=== PATIENT | female | born 1975 | race Caucasian/White ===

== ENCOUNTER → 2017-10-04 16:24 | Outpatient (CLI) | payer OTHER, SELFPAY ==
--- NOTE | 2017-10-04 | XR_ITS ---
XR chest 2V COMPARISON: PA and lateral chest 09/01/2017 HISTORY: Cough, suspect bronchitis, recent pneumonia TECHNIQUE: PA and lateral chest FINDINGS: The lung marina are well expanded. There has been almost complete resolution of the ill-defined pneumonic infiltrate in the lingula seen on the previous study and there now is minimal post inflammatory linear scarring in the lingula. There is no new infiltrate. Is no pleural fluid. Cardiac size is normal. IMPRESSION: Essentially resolved lingular pneumonia with minimal residual scarring
== END ==
PROVIDERS: PCP Nurse Practitioner Family; Visit Provider Nurse Practitioner Family
DX: J40 Bronchitis, not specified as acute or chronic (principal)
CPT/HCPCS: 71046

== ENCOUNTER → 2018-02-08 11:07 | Outpatient (CLI) | payer OTHER, SELFPAY ==
--- NOTE | 2018-02-08 11:10 | CT_ITS ---
CT abdomen w con CLINICAL INDICATION: Left upper quadrant pain ITS.REASON: LUQ PAIN ORDERING PHYSICIAN: Josiah Young MD PATIENT AGE: 42 years COMPARISON: None TECHNIQUE: Axial images obtained with sagittal and coronal reformats. All CT scans at the facility use one or more dose reduction, viz: automated exposure control; ma/kV adjustment per patient size (including targeted exams where dose is matched to indication; i.e. head); or iterative reconstruction technique. PROCEDURE: Oral Contrast: Redicat IV Contrast: 75 mL's of Isovue-370. FINDINGS: No acute finding in the lung bases. Bilateral breast implants are present. The liver, spleen, adrenal glands, and pancreas and kidneys have an unremarkable appearance. No renal calculi or hydronephrosis. No intestinal obstruction or free air. The pelvis is not included on the exam. No acute bony findings. IMPRESSION: Negative CT of the abdomen. No acute finding
== END ==
PROVIDERS: Family Provider Nurse Practitioner Family; PCP Nurse Practitioner Family; Visit Provider Family Medicine
DX: R10.12 Left upper quadrant pain (principal)
CPT/HCPCS: 74160; Q9967

== ENCOUNTER → 2020-08-26 15:08 | Outpatient (CLI) | payer BC, SELFPAY ==
--- NOTE | 2020-08-26 15:13 | CA_ITS ---
APPROVED REPORT EXAM: Comprehensive 2D, Doppler, and color-flow Echocardiogram Vegetable I Farmworker: Iona Thorne RVT Ht: 5 ft 7 in Wt: 150lbs BSA: 1.79 BP: 140/90 mmHg Indications: PALPS,HTN TDS-PT HAS BREAST IMPLANTS 2D Dimensions LVOT 2.05 cm (M/F) 1.5-2.5 M-Mode Dimensions RVDd 1.94 cm (0.9-2.6) LA Diam 2.45 cm (1.9-4.0) LVDd 5.37 cm (3.5-5.7) Ao Diam 2.95 cm (2.0-3.7) LVDs 3.78 cm (3.5-5.7) IVSd 0.66 cm (0.6-1.1) PWd 0.37 cm (0.6-1.1) EF (Teich) 56.10% FS 29.60% EDV (Teich) 139.50 mL ESV (Teich) 61.20 mL LV Diastology E Decel Time 150.00 (160-240 msec) E/A Ratio 0.9 MED E' 7.40 (< 7 cm/sec) E'/MED E' Ratio 9.22 (>14) LAT E' 7.30 (<10 cm/sec) E/LAT E' Ratio 9.34 (>14) Mitral Valve MV E Max Lane. 68.00 (40-130 cm/s) MV A Velocity 77.00 (40-130 cm/s) E/A Ratio 0.89 MV Decel. Time 150.00 (160-240 ms) MV PHT 44.00 ms Pulmonary Valve PV Peak Velocity 96.00 (50-150 cm/s) Tricuspid Valve TR P. Velocity 213.00 cm/s Left Ventricle Technically difficult study because of the patient factors and poor acoustic windows. Left atrium is normal size, left ventricle is normal size, left ventricle wall thickness is upper limit of the normal, there is preserved left ventricular systolic function, visually estimated ejection fraction 55% with no regional wall motion abnormality, diastolic parameters are inconclusive. Right Ventricle Right atrium and right ventricle are normal size and contractility. Aortic Valve Aortic valve is grossly normal, there is no aortic stenosis or aortic insufficiency. Mitral Valve Mitral valve is grossly normal, there is trace mitral regurgitation. Tricuspid Valve Tricuspid valve grossly normal, there is trace tricuspid regurgitation. Pulmonic Valve Pulmonic valve is poorly visualized. Great Vessels Aortic root is normal size. Pericardium No significant pericardial effusion noted. Conclusion 1. Normal left ventricular size, preserved left ventricular systolic function, visually estimated ejection fraction 55% with no regional wall motion abnormality, diastolic parameters are inconclusive. 2. Trace mitral and tricuspid regurgitation. 3. No significant pericardial effusion noted. Electronically signed by : Trey Mckee, 08/27/2020 06:17:15
== END ==
PROVIDERS: PCP Nurse Practitioner Family; Visit Provider Family Medicine
DX: R00.2 Palpitations (principal); I10 Essential (primary) hypertension
CPT/HCPCS: 93306

== ENCOUNTER → 2021-04-07 17:24 | Outpatient (CLI) | payer BC, OTHER, SELFPAY | PROVIDERS: PCP Family Medicine; Visit Provider Family Medicine | DX: R00.2 Palpitations (principal) | CPT/HCPCS: 93225; 93226 ==

== ENCOUNTER → 2021-06-26 12:38 | Outpatient (CLI) | payer BC, SELFPAY ==
[2021-06-26 13:12] LABS: Basophils # 0.1 K/mm3 (0-0.2); Basophils % 1.1 % (0.1-2.0); Eosinophils # 0.1 K/mm3 (0.0-0.4); Eosinophils % 1.4 % (0.1-12.0); Hematocrit 45.2 % (37.0-47.0); Hemoglobin 15.3 g/dL (12.2-16.2); Lymphocytes # 3.1 K/mm3 (0.7-4.5); Lymphocytes % 34.5 % (10-50); Mean Corpuscular HGB Conc 33.8 g/dL (31.8-35.4); Mean Corpuscular Hemoglobin 33.9 pg (27.0-31.2); Mean Corpuscular Volume 100.2 fl (81-99); Mean Platelet Volume 8.2 fl (7.4-10.4); Monocytes # 0.4 K/mm3 (0.1-1.0); Monocytes % 4.3 % (1.7-9.3); Neutrophils # 5.2 K/mm3 (1.8-7.8); Neutrophils % 58.7 % (37.0-80.0); Platelet Count 388 K/mm3 (142-424); Red Blood Count 4.51 M/mm3 (4.20-5.40); Red Cell Distribution Width 13.5 % (11.5-17.5); White Blood Count 8.9 K/mm3 (4.8-10.8)
[2021-06-26 14:42] LABS: Alanine Aminotransferase 18 U/L (12-78); Albumin Level 4.1 g/dl (3.5-5.0); Albumin/Globulin Ratio 1.5 (1.1-1.8); Alkaline Phosphatase 44 U/L (38-126); Anion Gap 10.1 mEq/L (5-15); Aspartate Amino Transferase 24 U/L (14-36); Bilirubin,Total 0.2 mg/dl (0.2-1.3); Blood Urea Nitrogen 8 mg/dl (7-17); Calcium 9.3 mg/dl (8.4-10.2); Carbon Dioxide 26 mmol/L (22.0-30.0); Chloride 107 mmol/L (98-107); Estimated Glomerular Filt Rate 77 ml/min (>60); GFR (African American) 93 ML/MIN (>60); Globulin 2.7 g/dL (1.3-3.2); Glucose 87 mg/dl (74-100); Potassium 4.1 mmoL/L (3.5-5.1); Sodium 139 mmol/L (136-145); Total Protein,Serum 6.8 g/dl (6.3-8.2)
[2021-06-26 15:11] LABS: Thyroid Stimulating Hormone 1.25 uIU/mL (0.465-4.68)
[2021-06-26 15:29] LABS: Vitamin B12 565 pg/mL (239-931)
== END ==
PROVIDERS: PCP Family Medicine; Visit Provider Physician Assistant
DX: Z20.822 Contact with and (suspected) exposure to COVID-19 (principal); Z79.899 Other long term (current) drug therapy
CPT/HCPCS: 36415; 80053; 82607; 84443; 85025; C9803; U0003; U0005

== ENCOUNTER 2025-01-12 16:39 | Outpatient (CLI) | payer BC, SELFPAY ==
[2025-01-12 16:58] LABS: Basophils % 0.2 % (0.1-2.0); Eosinophils # 0.1 Kmm3 (0.0-0.4); Eosinophils % 0.6 % (0.1-12.0); Hematocrit 44.1 % (37.0-47.0); Hemoglobin 14.8 g/dL (12.2-16.2); Lymphocytes # 2.6 K/mm3 (0.7-4.5); Lymphocytes % 31.5 % (10-50); Mean Corpuscular HGB Conc 33.6 g/dL (31.8-35.4); Mean Corpuscular Hemoglobin 31.7 pg (27.0-31.2); Mean Corpuscular Volume 94.4 fl (81-99); Mean Platelet Volume 8.5 fl (7.4-10.4); Monocytes # 0.5 K/mm3 (0.1-1.0); Monocytes % 5.9 % (1.7-9.3); Neutrophils % 61.6 % (37.0-80.0); Nucleated Red Blood Cells # 0 10^3/uL; Nucleated Red Blood Cells % 0 %; Platelet Count 381 K/mm3 (142-424); Red Blood Count 4.67 M/mm3 (4.20-5.40); Red Cell Distribution Width 11.8 % (11.5-17.5); Red Cell Distribution Width-SD 40.6 fL; White Blood Count 8.1 K/mm3 (4.8-10.8)
[2025-01-12 17:22] LABS: Anion Gap 12.2 mEq/L (5-15); Aspartate Amino Transferase 32 U/L (14-36); Bilirubin,Total 0.6 mg/dl (0.2-1.3); Blood Urea Nitrogen 11 mg/dl (7-17); Calcium 9.5 mg/dl (8.4-10.2); Carbon Dioxide 29 mmol/L (22.0-30.0); Chloride 102 mmol/L (98-107); Estimated Glomerular Filt Rate 59 ml/min (>60); GFR (African American) 71 ML/MIN (>60); Glucose 90 mg/dl (74-100); Potassium 4.2 mmoL/L (3.5-5.1); Sodium 139 mmol/L (136-145)
[2025-01-12 17:23] LABS: Alanine Aminotransferase 44 U/L (12-78); Albumin Level 4.6 g/dl (3.5-5.0); Albumin/Globulin Ratio 1.8 (1.1-1.8); Alkaline Phosphatase 47 U/L (38-126); Chol/HDL Ratio 4.6 (1-3.5); Cholesterol 198 mg/dl (140-200); Globulin 2.6 g/dL (1.3-3.2); HDL Cholesterol 43 mg/dl (40-60); Total Protein,Serum 7.2 g/dl (6.3-8.2); Triglycerides 126 mg/dl (30-150); VLDL Cholesterol 25 mg/dL (0-40)
[2025-01-12 17:33] LABS: Direct LDL Cholesterol 112.08 mg/dL (100-129)
[2025-01-12 17:42] LABS: Free T4 (Free Thyroxine) 1.41 ng/dl (0.78-2.19)
[2025-01-12 17:57] LABS: Thyroid Stimulating Hormone 0.07 uIU/mL (0.465-4.68)
[2025-01-12 18:16] LABS: Vitamin B12 430 pg/mL (239-931)
== END 2025-01-12 23:59 | disposition home or self-care (01) ==
LOC: LAB 16:41
PROVIDERS: PCP Physician Assistant; Visit Provider Physician Assistant
DX: E03.9 Hypothyroidism, unspecified (principal); I10 Essential (primary) hypertension; G43.919 Migraine, unspecified, intractable, without status migrainosus; Z13.220 Encounter for screening for lipoid disorders
CPT/HCPCS: 36415; 80053; 80061; 82607; 82652; 84439; 84443; 85025

== ENCOUNTER 2025-03-30 17:27 | Outpatient (CLI) | payer BC, SELFPAY ==
--- OUTSIDE RECORDS SUMMARY | 2025-01-11 12:30 | XMS_ITS ---
[facility] Address [address] [id number] Care Team Providers Care Retail Account Representative Name Role Phone Josiah Young Primary Care Provider Flores Jauregui Unavailable [phone] Allergies No Known Allergies Results Component Value Reference Range Notes H-TSH Reviewed date:01/16/2025 03:44:17 PM Interpretation:0.07 Performing Lab: Notes/Report: TSH 0.07 0.465-4.68 uIU/mL H-CBC Reviewed date:01/16/2025 03:44:17 PM Interpretation:mch 31.7 Performing Lab: Notes/Report: WBC 8.1 4.8-10.8 K/mm3 RBC 4.67 4.20-5.40 M/mm3 HGB 14.8 12.2-16.2 g/dL HCT 44.1 37.0-47.0 % MCV 94.4 81-99 fl MCH 31.7 27.0-31.2 pg MCHC 33.6 31.8-35.4 g/dL RDW-SD 40.6 RDW 11.8 11.5-17.5 % PLT 381 142-424 K/mm3 MPV 8.5 7.4-10.4 fl NE% 61.6 37.0-80.0 % LY% 31.5 10-50 % MO% 5.9 1.7-9.3 % EO% 0.6 0.1-12.0 % BA% 0.2 0.1-2.0 % NRBC% 0 NE# 5.0 1.8-7.8 K/mm3 LY# 2.6 0.7-4.5 K/mm3 MO# 0.5 0.1-1.0 K/mm3 EO# 0.1 0.0-0.4 Kmm3 BA# 0.0 0-0.2 K/mm3 NRBC# 0 H-Lipid Panel Reviewed date:01/16/2025 03:44:17 PM Interpretation:chol/hdl 4.6 Performing Lab: Notes/Report: Patient Fasting? N TRIG 126 30-150 mg/dl CHOL 198 140-200 mg/dl DLDL 112.08 100-129 mg/dL VLDL 25 0-40 mg/dL HDL 43 40-60 mg/dl CHLHDL 4.6 1-3.5 H-CMP Reviewed date:01/16/2025 03:44:17 PM Interpretation:Normal Performing Lab: Notes/Report: NA 139 136-145 mmol/L K 4.2 3.5-5.1 mmoL/L CL 102 98-107 mmol/L CO2 29 22.0-30.0 mmol/L GAP 12.2 5-15 mEq/L BUN 11 7-17 mg/dl CREATT 1.00 0.52-1.04 mg/dl GFRAA 71 >60 ML/MIN EGFR 59 >60 ml/min GLU 90 74-100 mg/dl CA 9.5 8.4-10.2 mg/dl BILIT 0.6 0.2-1.3 mg/dl AST 32 14-36 U/L ALT 44 12-78 U/L TP 7.2 6.3-8.2 g/dl ALB 4.6 3.5-5.0 g/dl GLOB 2.6 1.3-3.2 g/dL AGRATIO 1.8 1.1-1.8 ALP 47 38-126 U/L H-T4 free Reviewed date:01/16/2025 03:44:17 PM Interpretation:Normal Performing Lab: Notes/Report: T4F 1.41 0.78-2.19 ng/dl H-Vitamin D 1,25 Reviewed date:01/25/2025 04:31:04 PM Interpretation: Performing Lab: Notes/Report: [id number] 27 . pg/mL Reference Range: Adults: 21 - 65 [id number] <10 . pg/mL This test was developed and its performance characteristics determined by [facility]. It has not been cleared or approved by the Food and Drug Administration. [id number] 26 . pg/mL This test was developed and its performance characteristics determined by [facility]. It has not been cleared or approved by the Food and Drug Administration. Performed at: [facility] [address] [place] [id number] Deicer Inspector Electric: Josiah Remy MD, Phone: [phone] REASON FOR VISIT blood work and check up Encounters Encounter Location Date Provider Diagnosis [facility] [address] [id number] 01/11/2025 Flores Jauregui Hypothyroidism, unspecified hypothyroidism type E03.9 ; Essential hypertension I10 ; Screening for lipid disorders Z13.220 and Intractable migraine without status migrainosus, unspecified migraine type G43.919 Assessments Encounter Date Diagnosis (ICD Code) Assessment Notes Treatment Notes Treatment Clinical Notes Section Notes 01/11/2025 Hypothyroidism, unspecified hypothyroidism type (ICD-10 - E03.9) 01/11/2025 Essential hypertension (ICD-10 - I10) 01/11/2025 Screening for lipid disorders (ICD-10 - Z13.220) 01/11/2025 Intractable migraine without status migrainosus, unspecified migraine type (ICD-10 - G43.919) Plan Of Treatment Pending Test Test Name Order Date H-VITB12 01/11/2025 Progress Notes * Mary POWELLDOB: (49 yo F)Acc No.[id number]:01/11/2025 Progress Notes 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 Blood work and check up. * ROS: D ERMATOLOGY: no R rubi. n o H wayne. G ASTROENTEROLOGY: no N ausea. n o V omiting. U ROLOGY: no D ifficulty urinating. n o B lood in urine. * Medical History: H ypothyroidism, followed [facility], Allergic Rhinitis, Migraine Headache. * Surgical History: B ilateral Lasik 01/11/2014, Breast Augmentation , Uterine Ablation 02/2020. * Hospitalization/Major Diagno stic Procedure: D enies Past Hospitalization. * Family History: F ather: 60 yrs, heart attack, diagnosed with Hypertension. M other: alive 63 yrs, diagnosed with Hypertension. 1 brother(s) . 1 son(s) , 2 daughter(s) . . * Social History: C URRENT TOBACCO USE S moking Status: Patient does NOT smoke. C affeine: yes, frequency:coffee and pop QD. Home smoke detector use: yes. Marital Status: . Past smoking status: no. Alcohol: Yes, Type: , Frequency: ,Years: , Determination:occasionally. Sexually active: yes. * Allergies: N .K.D.A. Objective: * Vitals: Assessment: * Assessment: 1. H ypothyroidism, unspecified hypothyroidism type - E03.9 2 . E ssential hypertension - I10 3 . S creening for lipid disorders - Z13.220 4 . I ntractable migraine without status migrainosus, unspecified migraine type - G43.919 ? Plan: * Treatment: Value Reference Range T SH 0.07 L 0.465-4.68 - uIU/mL * RobbieKeira mehta 01/16/2025 03: 44:07 PM > see phone encounter ?LAB: H-T4 free (Collection Date & Time - 01/12/2025 04:43 PM)?Normal* Value Reference Range T 4F 1.41 0.78-2.19 - ng/dl * RobbieKeira mehta 01/16/2025 03: 44:07 PM > see phone encounter 2.?Essential hypertension?LAB: H-CBC (Collection Date & Time - 01/12/2025 04:43 PM)?mch 31.7* Value Reference Range W BC 8.1 4.8-10.8 - K/mm3 * R BC 4.67 4.20-5.40 - M/mm3 * H GB 14.8 12.2-16.2 - g/dL * H CT 44.1 37.0-47.0 - % * M CV 94.4 81-99 - fl * M CH 31.7 H 27.0-31.2 - pg * M CHC 33.6 31.8-35.4 - g/dL * R DW 11.8 11.5-17.5 - % * P LT 381 142-424 - K/mm3 * M PV 8.5 7.4-10.4 - fl * N E% 61.6 37.0-80.0 - % * L Y% 31.5 10-50 - % * M O% 5.9 1.7-9.3 - % * E O% 0.6 0.1-12.0 - % * B A% 0.2 0.1-2.0 - % * N E# 5.0 1.8-7.8 - K/mm3 * L Y# 2.6 0.7-4.5 - K/mm3 * M O# 0.5 0.1-1.0 - K/mm3 * E O# 0.1 0.0-0.4 - Kmm3 * B A# 0.0 0-0.2 - K/mm3 * R DW-SD 40.6 - fL * N RBC% 0 - % * N RBC# 0 - 10 3/uL * Keira Avalos 01/16/2025 03: 44:07 PM > see phone encounter ?LAB: H-CMP (Collection Date & Time - 01/12/2025 04:43 PM)?Normal* Value Reference Range N A 139 136-145 - mmol/L * K 4.2 3.5-5.1 - mmoL/L * C L 102 98-107 - mmol/L * C O2 29 22.0-30.0 - mmol/L * G AP 12.2 5-15 - mEq/L * B UN 11 7-17 - mg/dl * C REATT 1.00 0.52-1.04 - mg/dl * G FRAA 71 >60 - ML/MIN * E GFR 59 >60 - ml/min * G JASPAL 90 74-100 - mg/dl * C A 9.5 8.4-10.2 - mg/dl * B ILIT 0.6 0.2-1.3 - mg/dl * A ST 32 14-36 - U/L * A LT 44 12-78 - U/L * T P 7.2 6.3-8.2 - g/dl * A LB 4.6 3.5-5.0 - g/dl * G LOB 2.6 1.3-3.2 - g/dL * A GRATIO 1.8 1.1-1.8 - * A LP 47 38-126 - U/L * Keira Avalos 01/16/2025 03: 44:07 PM > see phone encounter 3.?Screening for lipid disorders?LAB: H-Lipid Panel (Collection Date & Time - 01/12/2025 04:43 PM)?chol/hdl 4.6* Value Reference Range T RIG 126 30-150 - mg/dl * C HOL 198 140-200 - mg/dl * D LDL 112.08 100-129 - mg/dL * V LDL 25 0-40 - mg/dL * H DL 43 40-60 - mg/dl * C HLHDL 4.6 H 1-3.5 - * Keira Avalos 01/16/2025 03: 44:07 PM > see phone encounter 4.?Intractable migraine without status migrainosus, unspecified migraine type?LAB: H-VITB12 ?LAB: H-Vitamin D 1,25 (Collection Date & Time - 01/12/2025 04:43 PM)* Value Reference Range l [id number] 27 . - pg/mL * V [id number] <10 . - pg/mL * V [id number] 26 . - pg/mL * Flores Jauregui 01/25/2025 04 :31:00 PM > * Images: Billing Information: * Visit Code: * Procedure Codes: * Electronic signature of BOB Paz on 03/30/2025 at 05:32 PM EDT Sign off status: Pending * Provider: BOB Rendon Date: 0 01/11/2025 Generated for Hadley ng/Fagiftyg/eTransmitting on: 0 03/30/2025 05:32 PM EDT
--- OUTSIDE RECORDS SUMMARY | 2025-01-24 12:30 | XMS_ITS ---
[facility] Organization [facility] [address] [facility] [address] [id number] Care Team Providers Care Division Head Name Role Phone Hector Josiah Primary Care Provider FlacoFlores lorenz Unavailable [phone] Allergies No Known Allergies REASON FOR VISIT lab work f/u and med check Medications Medication SIG (Take, Route, Frequency, Duration) Notes Start Date End Date Status Qulipta 10 MG 1 tablet Orally Once a day; Duration: 90 days 06/08/2024 Active Spironolactone 100 MG 2 tab Orally Once a day; Duration: 90 days Not-Takin g Qulipta 60 MG 1 tablet Orally Once a day; Duration: 90 days 09/28/2024 Active Contrave 8-90 MG take 2 tablet by adela th twice a day Orally Two times a day; Duration: 90 days Active Ondansetron 4 MG 1 tablet on the tong ue and allow to dissolve Orally three times a day as needed 06/08/2024 Not-Taking Liothyronine Sodium 5 MCG 1 tab(s) orall y once a day; Duration: 90 days Active Diclofenac Sodium 75 MG 1 tab(s) Orally two times a day as needed; Duration: 90 days Active Furosemide 20 MG 1 tab(s) orally once a day as needed Active Synthroid 112 MCG 1 tablet in the morning on an empty stomach Orally Once a day; Duration: 30 days 01/24/2025 Active Escitalopram Oxalate 5 MG 1 tab orally o nce a day; Duration: 90 days Active Ubrelvy 100 MG 1 tab(s) orally once daily, prn Not-Taking Tretinoin 0.01 % APPLY TO THE FACE ON CE DAILY IN THE EVENING; Duration: 30 Not-Taking Tretinoin 0.1 % 1 application in the evening to face Externally Once a day 01/24/2025 Active Topiramate 25 MG Take 1 tablet by adela once daily; Duration: 30 Not-Taking Nurtec 75 MG 1 tablet on the tong ue and allow to dissolve Orally every other day 08/03/2024 Not-Takin g Cyclobenzaprine HCl 10 MG 1 tab(s) orall y At Bed Time, prn; Duration: 90 days Active Vital Signs Blood pressure systolic 120 mm Hg 01/25/20 25 Blood pressure diastolic 76 mm Hg 025 Heart Rate 84 /min 01/24/2025 Height 66 in 01/24/2025 Weight 156.4 lbs 01/24/2025 BMI 25.24 kg/m2 01/24/2025 Encounters Encounter Location Date Provider Diagnosis [facility] [address], [place] [id number] 01/24/2025 Flores Jauregui Hypothyroidism, unspecified hypothyroidism type E03.9 ; Routine physical examination Z00.00 ; Essential hypertension I10 ; Screening for lipid disorders Z13.220 ; Intractable migraine without status migrainosus, unspecified migraine type G43.919 ; Anxiety F41.9 ; Adult acne L70.9 and BMI 25.0-25.9,adult Z68.25 Assessments Encounter Date Diagnosis (ICD Code) Assessment Notes Treatment Notes Treatment Clinical Notes Section Notes 01/24/2025 Hypothyroidism, unspecified hypothyroidism type (ICD-10 - E03.9) 01/24/2025 Routine physical examination (ICD-10 - Z00.00) 01/24/2025 Essential hypertension (ICD-10 - I10) 01/24/2025 Screening for lipid disorders (ICD-10 - Z13.220) 01/24/2025 Intractable migraine without status migrainosus, unspecified migraine type (ICD-10 - G43.919) 01/24/2025 Anxiety (ICD-10 - F41.9) 01/24/2025 Adult acne (ICD-10 - L70.9) 01/24/2025 BMI 25.0-25.9,adult (ICD-10 - Z68.25) Plan Of Treatment Medication Medication Name Sig Start Date Stop Date Notes Qulipta 60 MG 1 tablet Orally Once a day; Duration: 90 days 09/28/2024 Diclofenac Sodium 75 MG 1 tab(s) Orally two times a day as needed; Duration: 90 days Synthroid 112 MCG 1 tablet in the morn ing on an empty stomach Orally Once a day; Duration: 30 days 01/24/2025 Escitalopram Oxalate 5 MG 1 tab orally o nce a day; Duration: 90 days Synthroid 125 MCG 1 tablet in the morn ing on an empty stomach Orally Once a day Tretinoin 0.1 % 1 application in the evening to face Externally Once a day 01/24/2025 Next Appt Details Follow Up: 2 Months, Reason: Progress Notes * Mary POWELL MandeepDOB: (49 yo F)Acc No.[id number]:01/24/2025 Progress Notes 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 Lab work f/u and med check. * HPI: H PI: 49 year old female presents with c/o Patient is here today for?Pt is here for a medication check and a lab work f/u. * ROS: D ERMATOLOGY: no R rubi. n o H wayne. G ASTROENTEROLOGY: no N ausea. n o V omiting. U ROLOGY: no D ifficulty urinating. n o B lood in urine. * Medical History: H ypothyroidism, followed by [facility], Allergic Rhinitis, Migraine Headache. * Surgical History: B ilateral Lasik 01/11/2014, Breast Augmentation , Uterine Ablation 02/2020. * Family History: F ather: 60 yrs, [...] ,Years: , Determination:occasionally. Sexually active: yes. * Medications: T aking Furosemide 20 MG Tablet 1 tab(s) orally once a day as needed , Taking Liothyronine Sodium 5 MCG Tablet 1 tab(s) orally once a day , Taking Qulipta 10 MG Tablet 1 tablet Orally Once a day , Taking Contrave 8-90 MG Tablet Extended Release 12 Hour take 2 tablet by mouth twice a day Orally Two times a day , Taking Cyclobenzaprine HCl 10 MG Tablet 1 tab(s) orally At Bed Time, prn , Taking Diclofenac Sodium 75 MG Tablet Delayed Release 1 tab(s) Orally two times a day as needed , Taking Synthroid 125 MCG Tablet 1 tablet in the morning on an empty stomach Orally Once a day , Not-Taking Ondansetron 4 MG Tablet Disintegrating 1 tablet on the tongue and allow to dissolve Orally three times a day as needed , Not-Taking Spironolactone 100 MG Tablet 2 tab Orally Once a day , Not-Taking Nurtec 75 MG Tablet Disintegrating 1 tablet on the tongue and allow to dissolve Orally every other day , Not-Taking Ubrelvy 100 MG Tablet 1 tab(s) orally once daily, prn , Not-Taking Qulipta 60 MG Tablet 1 tablet Orally Once a day , Not-Taking Topiramate 25 MG Tablet Take 1 tablet by mouth once daily , Not-Taking Escitalopram Oxalate 5 MG Tablet 1 tab orally once a day , Not-Taking Tretinoin 0.01 % Gel APPLY TO THE FACE ONCE DAILY IN THE EVENING , Medication List reviewed and reconciled with the patient * Allergies: N .K.D.A. Objective: * Vitals: W t: 156.4, Temp: 97.7, BP: 120/76, HR: 84, Nurse: chaim, Ht: 66, BMI:25.24. * Examination: G eneral Examination: General Appearance: N AD. H EENT: u nremarkable.?Oral cavity: n o lesions, mucosa moist and WNL, no erythema. N moraima: s upple, no lymphadenopathy. C hest: n ormal shape and expansion. H eart: R SR. L ungs: c lear to auscultation. A bdomen: b owel sounds present , soft and nontender , no organomegaly or masses , no guarding or rigidity. N eurologic Exam: I ntact, gait normal. S kin: n ormal, no rash. P eripheral pulses: n ormal (2+) bilaterally. E xtremities: n o leg edema. Assessment: * Assessment: 1. R outine physical examination - Z00.00 2 . H ypothyroidism, unspecified hypothyroidism type - E03.9 3 . E ssential hypertension - I10 4 . S creening for lipid disorders - Z13.220 5 . I ntractable migraine without status migrainosus, unspecified migraine type - G43.919 6 . A nxiety - F41.9? 7. A dult acne - L70.9 8 . B CO 25.0-25.9,adult - Z68.25 Plan: * Treatment: 2. I ntractable migraine without status migrainosus, unspecified migraine type Refill Diclofenac Sodium Tablet Delayed Release, 75 MG, 1 tab(s), Orally, two times a day as needed, 90 days, 180, Refills 1; R efill Qulipta Tablet, 60 MG, 1 tablet, Orally, Once a day, 90 days, 90 Tablet, Refills 3. 3. A nxiety Refill Escitalopram Oxalate Tablet, 5 MG, 1 tab, orally, once a day, 90 days, 90 Tablet, Refills 3.? 4. A dult acne Start Tretinoin Cream, 0.1 %, 1 application in the evening to face, Externally, Once a day, 45 grams, Refills 2. * Procedure Codes: 3 074F SYST BP LT 130 MM HG, 3078F DIAST BP < 80 MM HG * Follow Up: 2 Months * Images: Billing Information: * Visit Code: 00998 Preventive Care Est Pt Age 40-64. Modifiers: [id number] Office Visit, Est Pt., Level 3. * Procedure Codes: 3074F SYST BP LT 130 MM HG. 3078F DIAST BP < 80 MM HG. * Electronic signature of OBB Paz on 03/30/2025 at 05:32 PM EDT Sign off status: Pending * Provider: BOB Rendon Date: 0 01/24/2025 Generated for Hadley nichols/Gaby/Bettinaitting on: 0 03/30/2025 05:32 PM EDT History and Physical Notes * HPI (History of Present Illness) Category Sub-Category Detail Notes Category Not es HPI Patient is here today for Pt is here for a medication check and a lab work f/u Examination Category Sub-Category Detail Notes Category Not es General Examination HEENT: unremarkable Heart: RSR Lungs: clear to auscultatio n Abdomen: bowel sounds present , soft and nontender , no organomegaly or masses , no guarding or rigidity Extremities: no leg edema General Appearance: NAD Skin: normal, no rash Neurologic Exam: Intact, gait normal Neck: supple, no lymphaden opathy Oral cavity: no lesions, mucosa m oist and WNL, no erythema Peripheral pulses: normal (2+) bilatera lly Chest: normal shape and exp ansion
--- OUTSIDE RECORDS SUMMARY | 2025-03-28 06:44 | XMS_ITS ---
Author Organization [facility] [address] [facility] [address] [id number] Care Team Providers Care Acid Changer Name Role Phone Josiah Young Primary Care Provider [phone] Beth Flores Jauregui [phone] REASON FOR VISIT Labs Encounters Encounter Location Date Provider Diagnosis [facility] [address] [place] [id number] 03/28/2025 Flores Juventino Hypothyroidism, unspecified hypothyroidism type E03.9 Assessments Encounter Date Diagnosis (ICD Code) Assessment Notes Treatment Notes Treatment Clinical Notes Section Notes 03/28/2025 Hypothyroidism, unspecified hypothyroidism type (ICD-10 - E03.9) Plan Of Treatment Pending Test Test Name Order Date H-TSH 03/28/2025 H-T4 free 03/28/2025 Progress Notes * Mary POWELLDOB: (49 yo F)Acc No.[id number]:03/28/2025 Patient: Dorothea COY Mary Kaufman :1975 A ge:49 Y S ex:Female Address:[place] [address] Subjective: * Chief Complaints: * L abs * Medical History: * Surgical History: * Hospitalization/Major Diagno stic Procedure: * Medications: Objective: * Vitals: * Physical Examination: Assessment: * Assessment: 1. H ypothyroidism, unspecified hypothyroidism type - E03.9 (Primary) Plan: * Treatment: * Procedure Codes: * true * Date: Generated for Hadley nichols/Gaby/Hayley on: 0 03/30/2025 05:32 PM EDT
--- OUTSIDE RECORDS SUMMARY | 2025-03-30 17:32 | XMS_ITS | Referral Summary ---
Author Organization [employer] ([place], [place], [place], [place]) Address [address] [place] [address] Care Team Providers Care Yarn Hauler Name Role Phone Flores Jauregui Primary Care Provider [phone] Social History Tobacco Use Types Packs/Day Years Used Date Smoking Tobacco: Never Assessed Food Insecurity Answer Date Recorded Food run out past 12 months Not on file 09/20 Food did not last past 12 months Not on file 10/08/2023 Employment Answer Date Recorded Help finding and keeping a job Not on file 0 10/08/2023 Family and Community Support Answer Jusot e Recorded Help with Day to Day Activities Not on file 10/08/2023 Feeling Lonely or Isolated Not on file 10/08 Educational Attainment Answer Date Shaheen rded Speak language other than Finnish at home Not on file 10/08/2023 Want help with school or training Not on file 10/08/2023 Substance Use Answer Date Recorded Used prescription meds for non-medical reasons N ot on file 10/08/2023 Used illegal drugs past 12 months Not on file 10/08/2023 Comments Unknown Sex and Gender Information Value Date Recorded Sex Assigned at Not on file Legal Sex Female 4:38 PM CDT Gender Identity Not on file Sexual Orientation Not on file Plan of Treatment Upcoming Encounters Date Type Department Care Team (Late st Contact Info) Description 04/23/2025 3:15 PM EDT Office Visit [facility] [address] [facility] [address] [place] [address] Carl Freedman MD [address] [place] [address] Procedures Procedure Name Priority Date/Time Associated Diagnosis Comments LIPID PANEL Routine 06/19/2024 8:15 AM EDT Screening, lipid from Last 3 Months or Most Recently Relevant to Health Maintenance Results * (ABNORMAL) Lipid panel (06/19/2024 8:15 AM EDT) Triglycerides 104 0 - 249 mg/dL 06/19/2024 9:09 AM EDT [facility] Cholesterol 174 0 - 199 mg/dL 06/19/2024 9:09 AM EDT [facility] Comment: 200 to 239 mg/dL = Moderate (borderline) >239 mg/dL = High HDL Cholesterol 42 >=40 mg/dL 06/19/2024 9:09 AM EDT [facility] Comment: >=60 mg/dL = Desirable <40 mg/dL = Increased Risk All other components are listed individually or are calculations VLDL Cholesterol 20.8 5 - 40 mg/dL 06/19/2024 9:09 AM EDT [facility] Cholesterol/HDL ratio 4.1(H) 0.0 - 3.2 06/19/2024 9:09 AM EDT [facility] LDl/HDL Ratio 3 0 - 4 06/19/2024 9:09 AM EDT [facility] RISK COMP 4 06/19/2024 9:09 AM EDT [facility] LDL Cholesterol, Calculated 111(H) 0 - 99 mg/dL 06/19/2024 9:09 AM EDT [facility] Blood Venipuncture / Unknown 06/19/2024 8:15 AM EDT 06/19/2024 8:19 AM EDT us Flores ROJAS LAB BLOOD ORDERABLES Final Re sult [facility] [address] [place], [place] [address] [phone] from Last 3 Months or Most Recently Relevant to Health Maintenance Insurance BLUE CROSS/BLUE SHIELD Care Teams Yarn Hauler Relationship Specialty Start Date End Date Flores Jauregui PA [address] [place] [address] PCP - General Physician Chute Man 12/09/22
--- OUTSIDE RECORDS SUMMARY | 2025-03-30 17:32 | XMS_ITS | Clinical Summary ---
Author Organization Healthcare Address [address] [place] [address] Care Team Providers Care Railroad Mechanic Name Role Phone Josiah Young MD Primary Care Provider [phone] Family History Medical History Relation Name Comments Heart disease Father Hyperlipidemia Father Hypertension Father Arthritis Mother Hyperlipidemia Mother Hypertension Mother Thyroid disease Mother Relation Name Status Comments Father Mother Social History Tobacco Use Types Packs/Day Years Used Date Smoking Tobacco: Never Comments Unknown Sex and Gender Information Value Date Recorded Sex Assigned at Not on file Legal Sex Female 8:02 PM EDT Gender Identity Not on file Sexual Orientation Not on file Last Filed Vital Signs Vital Sign Reading Time Taken Comments Blood Pressure - - Pulse - - Temperature - - Respiratory Rate - - Oxygen Saturation - - Inhaled Oxygen Concentration - - Weight 66.7 kg (147 lb) 01/17/2013 8:57 AM EDT Height 170.2 cm (5' 7 ) 01/17/2013 8:57 AM EDT Body Mass Index 23.02 01/17/2013 8:57 AM EDT Plan of Treatment Not on file Care Teams Railroad Mechanic Relationship Specialty Start Date End Date Josiah Young MD [address] [place] [address] PCP - General 01/31/21
--- OUTSIDE RECORDS SUMMARY | 2025-03-30 17:32 | XMS_ITS | Data Portability ---
Author Organization [facility],, Main Office Address [address] [place] [address] Assessment Encounter Date Assessment Date Assessment LastModified by Organization Details LastModified Time 03/12/2020 03/12/2020 Patient presents for pre-op evaluation. History and physical exam indicate: INSERT TEXT HERE. Patient evaluated for pelvic pain. History and exam indicate INSERT TEXT HERE. Patient educated on treatment and goals of therapy. Discussed follow up and orders indicated below. sammie Not available 05/05/2020 21:18:30 Plan of Treatment Reminders Order Date Submit Date Provider Last Modified By Organization Details Last Modified Time Details Appointments None recorded. Lab urinalysis , dipstick 2019 020 sammie Main Office, [address], [place], [address], 0 22:52:56 urinalysis , dipstick 2019 020 sammie Main Office, [address], [place], [address], 0 15:28:30 test, urine 2019 020 sammie Main Office, [address], [place], [address], 0 15:28:30 Referral None recorded. Procedures None recorded. Surgeries None recorded. Imaging None recorded. Medication Orders None recorded. Patient TargetsNo targets recorded. Patient Instructions Encounter Date Encounter Id Patient Instructions Last Modified By Organization Details Last Modified Time 03/12/2020 [id number] heavy menstrual periods: care instructions [email or web address] Not available 05/05/2020 21:21:57 Reason for Referral None Reported. Results Created Date Observation Date Name Description Value Unit Range Abnormal Flag Note LastModifiedBy Organization Detail LastModifiedTime 11/28/1911/28/2019 urina lysis , dipst ick Leukocytes - Not Available Main Of fice [address], [place], [address], 11/28/2019 09:54:51 11/28/1911/28/2019 urina lysis , dipst ick Nitrite negati ve Not Available Main Office [address], [place], [address], 11/28/2019 09:54:51 11/28/1911/28/2019 urina lysis , dipst ick Urobilinogen - Not Available Main Office [address], [place], [address], 11/28/2019 09:54:51 11/28/1911/28/2019 urina lysis , dipst ick Protein - Not Available Main Offic e [address], [place], [address], 11/28/2019 09:54:51 11/28/1911/28/2019 urina lysis , dipst ick pH 6.0 Not Available Main Offic e [address], [place], [address], 11/28/2019 09:54:51 11/28/1911/28/2019 urina lysis , dipst ick Blood - Not Available Main Offic e [address], [place], [address], 11/28/2019 09:54:51 11/28/1911/28/2019 urina lysis , dipst ick Specific [place] 1.010 Not Available Main O ffice [address], [place], [address], 11/28/2019 09:54:51 11/28/19 20 11/28/2019 urina lysis , dipst ick Ketone - Not Available Main Offic e [address], [place], [address], 11/28/2019 09:54:51 11/28/19 20 11/28/2019 urina lysis , dipst ick Bilirubin - Not Available Main Off ice [address], [place], [address], 11/28/2019 09:54:51 11/28/1911/28/2019 urina lysis , dipst ick Glucose - Not Available Main Offic e [address], [place], [address], 11/28/2019 09:54:51 11/28/19 20 11/28/2019 urina lysis , dipst ick Color - Not Available Main Offic e [address], [place], [address], 11/28/2019 09:54:51 11/28/1911/28/2019 pregn neftali test, urine HCG negati ve Not Available Main Office [address], [place], [address], 11/28/2019 09:55:08 03/01/2003/01/2020 urina lysis , dipst ick Leukocytes - Not Available Main Of fice [address], [place], [address], 03/01/2020 09:06:03 03/01/2003/01/2020 urina lysis , dipst ick Nitrite negati ve Not Available Main Office [address], [place], [address], 03/01/2020 09:06:03 03/01/20 20 03/01/2020 urina lysis , dipst ick Urobilinogen - Not Available Main Office [address], [place], [address], 03/01/2020 09:06:03 03/01/20 20 03/01/2020 urina lysis , dipst ick Protein - Not Available Main Offic e [address], [place], [address], 03/01/2020 09:06:03 03/01/20 20 03/01/2020 urina lysis , dipst ick pH 7.5 Not Available Main Offic e [address], [place], [address], 03/01/2020 09:06:03 03/01/20 20 03/01/2020 urina lysis , dipst ick Blood - Not Available Main Offic e [address], [place], [address], 03/01/2020 09:06:03 03/01/20 20 03/01/2020 urina lysis , dipst ick Specific [place] 1.005 Not Available Main O ffice [address], [place], [address], 03/01/2020 09:06:03 03/01/20 20 03/01/2020 urina lysis , dipst ick Ketone - Not Available Main Offic e [address], [place], [address], 03/01/2020 09:06:03 03/01/20 20 03/01/2020 urina lysis , dipst ick Bilirubin - Not Available Main Off ice [address], [place], [address], 03/01/2020 09:06:03 03/01/20 20 03/01/2020 urina lysis , dipst ick Glucose - Not Available Main Offic e [address], [place], [address], 03/01/2020 09:06:03 03/01/20 20 03/01/2020 urina lysis , dipst ick Appearance - Not Available Main Of fice [address], [place], [address], 03/01/2020 09:06:03 03/01/20 20 03/01/2020 urina lysis , dipst ick Color - Not Available Main Offic e [address], [place], [address], 03/01/2020 09:06:03 Result Notes None recorded. Problems Name Problem SNOMED Code Status Onset Date Resolution Date Notes Provider Name and Address Organization Details Recorded Time Migraine [id number] Active 019 Marya Puente [facility], 08/11/2019 10:46:31 Problem Notes None recorded. Procedures Surgical History Date Name Laterality Status Provider Name and Address Organization Details Recorded Time 03/13/20 20 Hysteroscopy completed [facility], 03/26/2020 15:54:06 03/13/20 20 Endometrial Ablation completed [facility], 03/26/2020 15:54:17 08/11/20 19 Date of Last Pap Smear completed Marya Puente [facility], 08/11/2019 10:46:51 09/20/19 14 Most Recent Mammogram completed [facility], 12/22/2017 14:05:43 09/20/19 14 Date of Last Mammogram completed [facility], 12/22/2017 14:06:52 delivery completed [facility], 12/22/2017 12:14:41 Breast Surgery completed [facility], 12/22/2017 14:14:59 Imaging Results None recorded. Procedure Notes None recorded. Medical Equipment None Reported. Allergies No known drug allergies Medications Name Sig Start Date Stop Date Status Note LastModified by Organization Details LastModified Time amoxicillin 500 mg capsule 12/22 completed Not Available Not Available Not Available furosemide 40 mg tablet 08/11 completed Not Available Not Available Not Available promethazin e-DM 6.25 mg-15 mg/5 mL oral syrup 03/12 completed Not Available Not Available Not Available venlafaxine ER 37.5 mg capsule,ext ended release 24 hr 12/07 completed Not Available Not Available Not Available potassium chloride ER 10 mEq capsule,ext ended release active Not Available Not Available Not Available venlafaxine ER 75 mg capsule,ext ended release 24 hr 08/11 completed Not Available Not Available Not Available fexofenadin e 60 mg tablet 09/17 completed Not Available Not Available Not Available azithromyci n 250 mg tablet 12/22 completed Not Available Not Available Not Available Lidocaine Viscous 2 % mucosal solution 12/22 completed Not Available Not Available Not Available fluconazole 150 mg tablet 08/11 completed Not Available Not Available Not Available benzonatate 200 mg capsule 12/22 completed Not Available Not Available Not Available valacyclovi r 1 gram tablet Take 1 tablet every day by oral route as needed for 5 days. active Not Available Not Available No t Available hydrocodone 5 mg-acetamin ophen 325 mg tablet 03/26 completed Not Available Not Available Not Available tretinoin 0.025 % topical cream Every night at bedtime 09/17 completed Not Available Not Available Not Available Synthroid 150 mcg tablet 08/11 completed Not Available Not Available Not Available ondansetron HCl 8 mg tablet 12/22 completed Not Available Not Available Not Available minocycline 100 mg capsule 12/22 completed Not Available Not Available Not Available meloxicam 15 mg tablet 12/22 completed Not Available Not Available Not Available ondansetron HCl 4 mg tablet active Not Available Not Available Not Available Synthroid 125 mcg tablet active Not Available Not Available Not Available spironolact one 100 mg tablet active Not Available Not Available Not Available sumatriptan 50 mg tablet 12/07 completed Not Available Not Available Not Available topiramate 25 mg tablet active Not Available Not Available Not Available fexofenadin e 180 mg tablet 09/17 completed Not Available Not Available Not Available liothyronin e 5 mcg tablet active Not Available Not Available Not Available tramadol 50 mg tablet 09/17 completed Not Available Not Available Not Available amitriptyli ne 50 mg tablet 08/11 completed Not Available Not Available Not Available triamcinolo ne acetonide 0.1 % topical cream 08/11 completed Not Available Not Available Not Available Cortrosyn 0.25 mg solution for injection INJECT 0.25 MG BY INTRAMUSC ULAR ROUTE ONCE 08/26 completed Not Available Not Available Not Available Promethazin e VC-Codeine 6.25 mg-5 mg-10 mg/5 mL oral syrup 12/22 completed Not Available Not Available Not Available amitriptyli ne 25 mg tablet 12/22 completed Not Available Not Available Not Available triamcinolo ne acetonide 0.025 % topical cream 12/22 completed Not Available Not Available Not Available meclizine 25 mg tablet 03/12 completed Not Available Not Available Not Available dexamethaso ne 2 mg tablet 12/22 completed Not Available Not Available Not Available hydrocodone 7.5 mg-acetamin ophen 325 mg tablet 12/22 completed Not Available Not Available Not Available cephalexin 500 mg capsule 12/22 completed Not Available Not Available Not Available oseltamivir 75 mg capsule 08/11 completed Not Available Not Available Not Available Neurontin 100 mg capsule Take 1 cap qhs 08/11 completed Not Available Not Available Not Available dexamethaso ne 4 mg tablet 03/12 completed Not Available Not Available Not Available Effexor 37.5 mg tablet twice a day by oral route. 12/07 completed Not Available Not Available Not Available hydrochloro thiazide 12.5 mg capsule 12/22 completed Not Available Not Available Not Available minocycline 75 mg capsule Two times a day 09/17 completed Not Available Not Available Not Available Pred Forte 1 % eye drops,suspe nsion 09/17 completed Not Available Not Available Not Available montelukast 10 mg tablet 09/17 completed Not Available Not Available Not Available mupirocin 2 % topical ointment 09/17 completed Not Available Not Available Not Available furosemide 20 mg tablet active Not Available Not Available Not Available azelastine 137 mcg (0.1 %) nasal spray 09/17 completed Not Available Not Available Not Available ibuprofen 600 mg tablet active Not Available Not Available Not Available cefuroxime axetil 500 mg tablet 12/22 completed Not Available Not Available Not Available levofloxaci n 750 mg tablet 09/17 completed Not Available Not Available Not Available methylpredn isolone 4 mg tablets in a dose pack 12/22 completed Not Available Not Available Not Available cefdinir 300 mg capsule 03/12 completed Not Available Not Available Not Available fluticasone propionate 50 mcg/actuati on nasal spray,suspe nsion 09/17 completed Not Available Not Available Not Available spironolact one 50 mg tablet 09/17 completed Not Available Not Available Not Available amoxicillin 875 mg-potassiu m clavulanate 125 mg tablet 08/11 completed Not Available Not Available Not Available amoxicillin 500 mg-potassiu m clavulanate 125 mg tablet 08/11 completed Not Available Not Available Not Available Synthroid 137 mcg tablet 03/12 completed Not Available Not Available Not Available eletriptan 40 mg tablet active Not Available Not Available Not Available cyclobenzap rine 5 mg tablet active Not Available Not Available Not Available duloxetine 60 mg capsule,del ayed release active Not Available Not Available Not Available Relpax 06/11 completed Not Available Not Available Not Available ProAir HFA 90 mcg/actuati on aerosol inhaler 08/11 completed Not Available Not Available Not Available Flector 1.3 % transdermal 12 hour patch 08/11 completed Not Available Not Available Not Available desvenlafax ine succinate ER 50 mg tablet,exte nded release 24 hr Take 1 tablet(s) every day by oral route. 03/12 completed Not Available Not Available Not Available desvenlafax ine succinate ER 100 mg tablet,exte nded release 24 hr active Not Available Not Available Not Available venlafaxine ER 75 mg tablet,exte nded release 24 hr 12/22 completed Not Available Not Available Not Available L norgest/E estradiol-E estrad 0.1 mg-20 mcg (84)/10 mcg (7) tabs,3mos TAKE 1 TABLET BY MOUTH EVERY DAY active Not Available Not Available No t Available gatifloxaci n 0.5 % eye drops 09/17 completed Not Available Not Available Not Available Silenor 3 mg tablet 12/22 completed Not Available Not Available Not Available Lotemax 0.5 % eye gel drops 09/17 completed Not Available Not Available Not Available Prolensa 0.07 % eye drops 09/17 completed Not Available Not Available Not Available desvenlafax ine ER 50 mg tablet,exte nded release 24 hour active Not Available Not Available Not Available Ajovy Syringe 225 mg/1.5 mL subcutaneou s active Not Available Not Available Not Available Vitals Date Recorded Body height Body mass index (BMI) Body weight Heart rate Body temperature Systolic And Diastolic Provider Name and Address Organization Details Last Updated DateTime 0 170.18 cm 23.3 kg/m2 11411.2 6 g 92 /min 96.7 [degF] 139/94 mm[Hg] [facility], 0 09:52:37 Date Recorded Body height Body mass index (BMI) Body weight Heart rate Body temperature Systolic And Diastolic Provider Name and Address Organization Details Last Updated DateTime 0 170.18 cm 23.5 kg/m2 99889.8 6 g 80 /min 98.2 [degF] 124/91 mm[Hg] [facility], 0 09:04:20 Date Recorded Body height Body mass index (BMI) Body weight Heart rate Body temperature Systolic And Diastolic Provider Name and Address Organization Details Last Updated DateTime 0 170.18 cm 23.5 kg/m2 96268.8 6 g 88 /min 98.4 [degF] 133/89 mm[Hg] [facility], 0 14:13:13 Date Recorded Body height Body mass index (BMI) Body weight Heart rate Body temperature Systolic And Diastolic Provider Name and Address Organization Details Last Updated DateTime 0 170.18 cm 23.5 kg/m2 60078.8 6 g 91 /min 98 [degF] 116/90 mm[Hg] [facility], 0 15:52:30 Social History Question Answer Notes LastModified by Organizat ion Details LastModified Time Tobacco Smoking Status Never Smoker Not Available [employer] 07/16/2020 03:20:23 Able To Swim? Yes Information not available 12/22/2017 Accident Related Injury No Information not available 12/22/2017 Do You Have An Advance Directive? No [id number] Information not available 07/16/2020 How Many Years Have You Consumed Alcohol? 21 [id number] Information not available 07/16/2020 Animal Exposure? Yes Informat ion not available 12/22/2017 Are You Currently Sexually Active With Anyone Who Has Traveled (within The Last 12 Weeks) To A Zika-affected Area? No [id number] Information not available 07/16/2020 Do You Wear A Helmet When Biking? No [id number] Information not available 07/16/2020 Are You Blind Or Do You Have Difficulty Seeing? No [id number] Information not available 07/16/2020 What Is Your Level Of Caffeine Consumption? Moderate [id number] Information not available 07/16/2020 How Much Tobacco Do You Chew? None [id number] Information not available 07/16/2020 Concerns About Meeting Basic Needs (food, Housing, Heat, Etc)? No Information not available 12/22/2017 Are You Deaf Or Do You Have Serious Difficulty Hearing? No [id number] Information not available 07/16/2020 What Type Of Diet Are You Following? REGULAR [id number] Information not available 07/16/2020 Which Illicit Or Recreational Drugs Have You Used? None [id number] Information not available 07/16/2020 Education 4 Year College Information not available 12/22/2017 What Is The Highest Grade Or Level Of School You Have Completed Or The Highest Degree You Have Received? [id number] Information not available 07/16/2020 How Many Days Of Moderate To Strenuous Exercise, Like A Brisk Walk, Did You Do In The Last 7 Days? 1 [id number] Information not available 07/16/2020 On Those Days That You Engage In Moderate To Strenuous Exercise, How Many Minutes, On Average, Do You Exercise? 1 [id number] Information not available 07/16/2020 Family History Of Heart Disease? Yes Information not available 12/22/2017 Have There Been Any Changes To Your Family Or Social Situation? No [id number] Information no t available 07/16/2020 How Hard Is It For You To Pay For The Very Basics Like Food, Housing, Medical Care, And Heating? [id number] Information not available 12/22/2017 Are There Any Guns Present In Your Home? Yes [id number] Information not available 07/16/2020 Hard Of Hearing Or Deaf In One Or Both Ears? No Information not available 12/22/2017 Legally Blind In One Or Both Eyes? No Information no t available 12/22/2017 Live Alone Or With Others? With Others Information not available 12/22/2017 Do You Have A Medical Power Of [employer] Crewmember? No [id number] Information not available 07/16/2020 What Was The Date Of Your Most Recent Tobacco Screening? 01/12/2018 [id number] Information not available 07/16/2020 How Many Children Do You Have? 3 [id number] Information not available 07/16/2020 Performs Monthly Self-breast Exam? Yes Information no t available 12/22/2017 Do You Have Any Pets? Yes [id number] Information not available 07/16/2020 Difficulty Reading? No Information not available 12/22/2017 Seat Belts Used Routinely Yes Information not available 12/22/2017 Are You Sexually Active? Yes [id number] Information not available 07/16/2020 Smoke Alarm In Home Yes Information not available 12/22/2017 Do You Have Smoke And Carbon Monoxide Detectors In Your Home? Yes [id number] Information not available 07/16/2020 Are You Passively Exposed To Smoke? No Information no t available 12/22/2017 Are There Any Smokers In Your House? No Information not available 12/22/2017 How Much Tobacco Do You Smoke? No [id number] Information not available 07/16/2020 General Stress Level Medium Information not available 12/22/2017 Sun Exposure Minimal Information not available 12/22/2017 Do You Use Sunscreen Routinely? No [id number] Information not available 07/16/2020 TB Risk Low Information no t available 12/22/2017 Has Tobacco Cessation Counseling Been Provided? No [id number] Information not available 07/16/2020 Difficulty Watching TV? No Information not available 12/22/2017 Do You Have Difficulty Walking Or Climbing Stairs? No [id number] Information not available 07/16/2020 Sex: Unknown Functional Status Question Answer Note LastModified by Organizat ion Details LastModified Time What is your level of alcohol consumption? Occasional [id number] Information not available 07/16/2020 Are you currently employed? Yes [id number] Information not available 07/16/2020 Do you have transportation difficulties? No [id number] Information not available 07/16/2020 Are you able to walk? YESWOREST [id number] Information not available 07/16/2020 Do you have difficulty doing errands alone? No [id number] Information not available 07/16/2020 Are you able to care for yourself? 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 No [id number] Information not available 07/16/2020 What is your exercise level? Occasional [id number] Information not available 07/16/2020 Mental Status Question Answer Note LastModified by Organizat ion Details LastModified Time Do you feel stressed (tense, restless, nervous, or anxious, or unable to sleep at night)? 1 [id number] Information not available 07/16/2020 Do you have difficulty concentrating, remembering or making decisions? Yes remembering [id number] Information not available 07/16/2020 Family History Relationship Description Onset Age of this Age Resolved Age Notes LastModified by Organization Details LastModified Time Mother Hypothyroidi sm [email or web address] Not available 12/22 12:12:24 Mother Hypertensive disorder [email or web address] Not available 12/22 12:12:46 Mother Hypercholest erolemia [email or web address] Not available 12/22 14:08:49 Mother Arthritis [email or web address] Not availa ble 12/22/2017 14:10:37 Paternal Grandfather Hypertensive disorder [email or web address] Not available 12/22 12:12:46 Paternal Grandfather Heart disease [email or web address] Not available 12/22 12:13:17 Father Heart disease [email or web address] Not available 12/22 12:13:17 Father Hypertensive disorder [email or web address] Not available 12/22 14:09:26 Paternal Uncle Heart disease [email or web address] Not available 12/22 14:09:11 Paternal Uncle Hypertensive disorder [email or web address] Not available 12/22 14:10:08 Brother Hypertensive disorder [email or web address] Not available 12/22 14:09:38 Maternal Grandfather Hypertensive disorder [email or web address] Not available 12/22 14:09:50 Maternal Grandmother Hypertensive disorder [email or web address] Not available 12/22 14:09:58 Maternal Grandmother Arthritis [place] Not available 0 12/22/2017 14:10:37 Medical History Condition Response Coronary Artery Disease N Gout N Other Y Blood Diseases N Kidney Stones N Enlarged Prostate N Hyperthyroidism Y Blood Transfusion N COPD N Depression N Dermatologic Disorders N Gestational Diabetes N Anxiety Disorder N Muscle, Joint, or Bone Problems N Autoimmune disease N Obesity N Vision or Eye Problems N Arthritis N Polyps N Infertility N Mental Disorder N Cancer N Varicosities N Stroke N Neurologic/Epilepsy N Headaches Y Fibromyalgia N Kidney Disease N Heart Problems N Ear or Hearing Problems N Hospitalizations N Acne N Skin Problems N Eating Disorder N MRSA exposure N Heartburn N Constipation N Art (IVF or FET) N Bladder Problems N Bleeding Disorder N Tuberculosis N AIDS/HIV N G.E.R.D N Asthma N Trauma/Violence N Hepatitis N Pulmonary Embolism N Chronic Ear Infections N Chicken Pox N Autism Spectrum Disorder (ASD) N Thrombophilias N Allergies (Food, seasonal, environmental ) N Colon Cancer N Drug/Latex Allergies/Reactions N Breast Cancer N Hypothyroidism N Lung Disease N Developmental or Behavioral Disorders N Defects or Inherited Disease N Breast Problem N Difficulty Swallowing N Hematologic disorders N Anesthesia Complications N History of STI N Deep Vein Thrombosis N Polycystic ovary syndrome N Meniere's disease N History of abnormal pap N Endometriosis N High Cholesterol N Liver Disease N Allergies/Hayfever N Kidney Problems N Thyroid Problems N GI Problems N ADD/ADHD N Anemia N Mental Illness N Psychiatric Illness N Diabetes N Ovarian Cancer N Pulmonary (TB, Asthma) N Seizures/Epilepsy N Congestive Heart Failure (CHF) N Hyperlipidemia N Eczema N Abuse/Domestic Violence N Diverticulitis N Depression/ depression N Heart Disease N Hypertension N Pre-Eclampsia N Osteoporosis N Gynecological History Statement/Question Response Abnormal Pap N Date of Last Mammogram 09/20/2013 Date of LMP 08/07/2019 On BCP's at Conception? N STIs/STDs Y HPV Vaccine N Duration of Flow (days) 5 Age at Menarche 12 Current Control Method BCPs Most Recent Mammogram 09/20/2013 Age at First Child 17 Date of Last Colonoscopy Frequency of Cycle (Q days) Sexually Active? Y Menses Monthly Y Date of Last Pap Smear 08/11/2019 Sexual Problems? N LMP Approximate Obstetrics History GPAL:G 3 P 3 0 0 3 Type Value Full Term 3 Living 3 Total 3 Immunizations Vaccine Type Date Status Note Provider Nam e and Address Organization Details Recorded Time Influenza, split virus, quadrivalent, preservative 7 completed Estefania Sam [facility] FERTILITY AND GYNECOLOGY, 01/12/2018 15:39:47 Past Encounters Encounter ID Performer Location Encounter Start Date Encounter Closed Date Diagnosis/Indication Diagnosis SNOMED-CT Code Diagnosis ICD10 Code Diagnosis Note [id number] BOB Pereyra Main Office [address] [place] [address] 12/22/2017 13:26:15 12/22/2017 15:10:30 Depressive disorder 96711451 F33.0 Gynecologi c examination 31557587 Z01.411 pap Irregular periods 704438 07 N92.6 labs, u/s. interested in novasure Flushing 305104460 R23.2 switch to pristiq Screening for malignant neoplasm of colon 417638464 Z12.11 [id number] Liam Estrada DO Main Office [address] [place] [address] 01/12/2018 14:58:05 01/12/2018 16:27:37 Irregular periods 61620604 N92.6 Cyst of ovary 46317703 N 83.209 [id number] Liam Estrada DO Main Office [address] [place] [address] 08/11/2019 09:48:16 08/11/2019 11:45:03 Renewal of prescription 562672307 Z76.0 Gynecologi c examination 81325617 Z01.411 pap Pain in pelvis 99626327 R10.2 left-sided Reduced libido 7077543 R 68.82 labs Break-thro ugh bleeding 69730068 N92.1 u/s Menorrhagia 128714998 N9 2.0 Hypothyroidism 01739736 E03.8 [id number] Liam Estrada DO Main Office [address] [place] [address] 08/29/2019 14:58:17 08/29/2019 16:02:16 Menstrual migraine 41617144 G43.829 Cyst of right ovary 1223 114560 3303521 N83.291 Menorrhagia 187985515 N9 2.0 Secondary dysmenorrhea 53819792 N94.5 Pain in pelvis 16993531 R10.2 [id number] Liam Estrada DO Main Office [address] [place] [address] 11/28/2019 09:45:02 11/28/2019 10:54:09 Pain in pelvis 80121622 R10.2 Abnormal u terine bleeding 3295548368 9100 N92.0 Cyst of left ovary 53198 79512 2593256 N83.292 [id number] Liam Estrada DO Main Office [address] [place] [address] 03/01/2020 08:57:46 03/01/2020 11:52:01 Pain in pelvis 17987684 R10.2 Abnormal u terine bleeding 4768847864 9100 N92.0 Cyst of right ovary 1223 272835 3305683 N83.291 [id number] Liam Estrada DO Main Office [address] [place] [address] 03/12/2020 13:42:44 03/12/2020 15:05:42 Menorrhagia 804058117 N92.0 Pain in pelvis 02761049 R10.2 left-sided Secondary dysmenorrhea 58447918 N94.5 [id number] Liam Estrada DO Main Office [address] [place] [address] 03/13/2020 14:19:54 03/13/2020 14:33:44 [id number] Liam Estrada DO Main Office [address] [place] [address] 03/26/2020 15:45:24 03/27/2020 10:04:23 Abnormal uterine bleeding 0719903677 9100 N92.0 Secondary dysmenorrhea 37722038 N94.5 Health Concerns Section Related Observation LastModified by Organization Detai ls LastModified Time None Recorded Concern Status LastModified by Organization Details LastModified Time None Recorded Advance Directives Directive N: Payers Insurance Date Sequence Insurance Name Policy Number Policy Salvador Covered Member ID Salvador Member ID Guarantor Name 03/23/2020 1 [place] [facility] [id number] Mary Powell [id number] Mary Powell 08/11/2019 1 [facility] [id number] Mary Powell [id number] Mary Powell Notes Date Note Type Note Provider Name and Address Organization Details Recorded Time 03/01/2020 text/html Abnormal BleedingReported bypatient.Onset/Timing :past 6+ cycles Duration:10-15 days/month Quality:passing clots;irregular;heavy Severity:interferes with daily activities Context:occurs after intercourse Associated Symptoms:dysmenorrhea; pelvic pain Liam Estrada DO [address], [place], [address], [facility] FERTILITY AND GYNECOLOGY, 05/21/2020 22:53:00 03/12/2020 text/html Abnormal BleedingReported bypatient.Onset/Timing :past 6+ cycles; every cycle Duration:10-15 days/month Quality:passing clots;heavy Associated Symptoms:dysmenorrhea; pelvic painPre-OpReported bypatient.Surgery to be Performed:Patient presents for pre-op evaluation. Procedure: hysteroscopy, D&C, endometrial biopsy, novasure endometrial ablation Context/Condition Being Addressed:pelvic pain, aub, ovarian cyst Location:[facility] Severity:mild Risk Factorsno cognitive impairment; no functional impairment; no malnutrition; no frailty; able to climb a flight of stairs (exercise capacity>4 METS); no obstructive sleep apnea; non-smoker; no alcohol misuse; no illicit drug use; no chronic cardiopulmonary condition; not obese Anesthesia hx:no hx of anesthesia complications; no allergy to anesthetic agents Functional Ability:able to walk up stairs; able to perform heavy work around the house Post-Op Support:no need for assistance Patient presents for evaluation. of excessive bleeding Procedure: hysteroscopy, D&C, endometrial biopsy, novasure endometrial ablation Liam Estrada DO [address], [place], [address], [facility] FERTILITY AND GYNECOLOGY, 05/05/2020 21:22:01 03/26/2020 text/html Post-OpReported bypatient.Associated Symptoms:incision healing well; no fatigue; normal appetite; normal bowel function; no constipation; no nausea; no emesis; pain improving; no pain; no fever; no bleeding; no lower extremity edema/pain; no dysuria/urinary symptoms Liam Estrada DO [address], [place], [address] FERTILITY AND GYNECOLOGY, 06/22/2020 17:10:59 OBGyn Episode Ob Episode Information Episode Created Date Number of Fetuses Patient Bloodtype Patient rh Status Prepregnancy Weight lbs Domestic Partner Domestic Partner Phone Father Name Vp Account Director Status 12/23/19 18 1 CLOSED Fetus Data First Name Last Name Admitted to NICU Weight (g) Sex Living Outcome Pediatric Complications Fetus ID Race Codes Race Delivery Type 3685.43 5 F Full Term 1621 vaginal Eben Calculation Initial Eben Date Initial Exam Date Initial Exam Provider Initial Ultrasound Date Last Menstrual Period Date Ultra Sound Weeks Gestation 0 Eighteen To Twenty Week Eben Update Ultra Sound Date Fundal Height At Umbil Quickening Date Ultra Sound Latest Weeks Gestation Final Eben Confirmed By Final Eben Confirmed Date Final Eben Date Ultra Sound Latest Days Gestation 0 0 Menstrual History Last Menstrual Date Menses Monthly On Bcp Conception Prior Menses Frequency Hcg Plus Date Menarche Onset Age Delivery Information Delivery Date Delivery Type Labor Anesthesia Weeks Gestation Incision Type Labor Labor Length Hrs Delivered By Post Complications Tubal Sterilization Discharge Date Comments 4 Discharge Information Feeding Method Contraceptive Method Maternal HG B and HCT Levels Ob Episode Information Episode Created Date Number of Fetuses Patient Bloodtype Patient rh Status Prepregnancy Weight lbs Domestic Partner Domestic Partner Phone Father Name Vp Account Director Status 12/23/19 18 1 CLOSED Fetus Data First Name Last Name Admitted to NICU Weight (g) Sex Living Outcome Pediatric Complications Fetus ID Race Codes Race Delivery Type 3572.03 7 F Full Term 1620 vaginal Eben Calculation Initial Eben Date Initial Exam Date Initial Exam Provider Initial Ultrasound Date Last Menstrual Period Date Ultra Sound Weeks Gestation 0 Eighteen To Twenty Week Eben Update Ultra Sound Date Fundal Height At Umbil Quickening Date Ultra Sound Latest Weeks Gestation Final Eben Confirmed By Final Eben Confirmed Date Final Eben Date Ultra Sound Latest Days Gestation 0 0 Menstrual History Last Menstrual Date Menses Monthly On Bcp Conception Prior Menses Frequency Hcg Plus Date Menarche Onset Age Delivery Information Delivery Date Delivery Type Labor Anesthesia Weeks Gestation Incision Type Labor Labor Length Hrs Delivered By Post Complications Tubal Sterilization Discharge Date Comments 2 Discharge Information Feeding Method Contraceptive Method Maternal HG B and HCT Levels Ob Episode Information Episode Created Date Number of Fetuses Patient Bloodtype Patient rh Status Prepregnancy Weight lbs Domestic Partner Domestic Partner Phone Father Name Vp Account Director Status 12/23/19 18 1 CLOSED Fetus Data First Name Last Name Admitted to NICU Weight (g) Sex Living Outcome Pediatric Complications Fetus ID Race Codes Race Delivery Type 3089.86 8704 M Full Term 1622 Eben Calculation Initial Eben Date Initial Exam Date Initial Exam Provider Initial Ultrasound Date Last Menstrual Period Date Ultra Sound Weeks Gestation 0 Eighteen To Twenty Week Eben Update Ultra Sound Date Fundal Height At Umbil Quickening Date Ultra Sound Latest Weeks Gestation Final Eben Confirmed By Final Eben Confirmed Date Final Eben Date Ultra Sound Latest Days Gestation 0 0 Menstrual History Last Menstrual Date Menses Monthly On Bcp Conception Prior Menses Frequency Hcg Plus Date Menarche Onset Age Delivery Information Delivery Date Delivery Type Labor Anesthesia Weeks Gestation Incision Type Labor Labor Length Hrs Delivered By Post Complications Tubal Sterilization Discharge Date Comments 1 Discharge Information Feeding Method Contraceptive Method Maternal HG B and HCT Levels
--- OUTSIDE RECORDS SUMMARY | 2025-03-30 17:32 | XMS_ITS | Clinical Summary ---
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 [place] [address] Health Maintenance Due Date Last Done Comments CT Colonography 1975 Colonoscopy 1975 Colorectal Cancer Screening 1975 FOBT/FIT 1975 Fit-DNA (Cologuard) 1975 Sigmoidoscopy 1975 Depression Screening (12+) 1987 Tobacco Cessation Counseling and Screening (12+) 1987 HIV Screening 1990 Hepatitis C Screening 1993 DTAP/TDAP/TD VACCINES (1 - Tdap) 1994 Pap Smear 1996 Breast Cancer Screening 2015 COVID-19 VACCINE (3 - 2023-2 5 season) 2024 12/25/2020, 11/27/2020 Influenza Vaccine (#1) 2025 08/07/2022 Lipid Panel 06/19/2027 06/19/2024, 12/09/2022 Pneumococcal Vaccine: 0-49 Years Aged Out No longer eligible b ased on patient's age to complete this topic Procedures Procedure Name Priority Date/Time Associated Diagnosis Comments LIPID PANEL Routine 06/19/2024 8:15 AM EDT Screening, lipid from Last 3 Months or Most Recently Relevant to Health Maintenance Results * (ABNORMAL) Lipid panel (06/19/2024 8:15 AM EDT) Triglycerides 104 0 - 249 mg/dL 06/19/2024 9:09 AM EDT [facility] Cholesterol 174 0 - 199 mg/dL 06/19/2024 9:09 AM EDT [facility] Comment: 200 to 239 mg/dL = Moderate (borderline) >239 mg/dL = High HDL Cholesterol 42 >=40 mg/dL 06/19/2024 9:09 AM EDT [facility] Comment: >=60 mg/dL = Desirable <40 mg/dL = Increased Risk All other components are listed individually or are calculations VLDL Cholesterol 20.8 5 - 40 mg/dL 06/19/2024 9:09 AM EDT [facility] Cholesterol/HDL ratio 4.1(H) 0.0 - 3.2 06/19/2024 9:09 AM EDT [facility] LDl/HDL Ratio 3 0 - 4 06/19/2024 9:09 AM EDT [facility] RISK COMP 4 06/19/2024 9:09 AM EDT [facility] LDL Cholesterol, Calculated 111(H) 0 - 99 mg/dL 06/19/2024 9:09 AM EDT [facility] Blood Venipuncture / Unknown 06/19/2024 8:15 AM EDT 06/19/2024 8:19 AM EDT us Flores ROJAS LAB BLOOD ORDERABLES Final Re sult [facility] [address] [phone] from Last 3 Months or Most Recently Relevant to Health Maintenance Insurance BLUE CROSS/BLUE SHIELD Care Teams Media Buyer Relationship Specialty Start Date End Date Flores Jauregui PA [address] [place] [address] PCP - General Physician Senior Controls Technician 12/09/22
--- OUTSIDE RECORDS SUMMARY | 2025-03-30 17:32 | XMS_ITS | Encounter Summary ---
Author Organization [employer] ([place], [place], [place], [place]) Address [address] [place] [address] Care Team Providers Care Doughmaker Name Role Phone Flores Jauregui Primary Care Provider [phone] Encounter Details Date Type Department Care Team (Late st Contact Info) Description 06/19/2024 Outside Orders [facility] [address] [place] [address] Flores Jauregui PA [address] [place] [address] Other migraine without status migrainosus, intractable (Primary Dx); Hypothyroidism, unspecified type; Essential hypertension; Screening, lipid Social History Tobacco Use Types Packs/Day Years [...] Date Shaheen rded Speak language other than Russian at home Not on file 10/08/2023 Want [...] on file Sexual Orientation Not on file documented as of this encounter Plan of Treatment Upcoming Encounters Date Type Department Care Team (Late st Contact Info) Description 04/23/2025 3:15 PM EDT Office Visit [facility] Primary Care [address] [place] [address] Carl Freedman MD [address] [place] [address] documented as of this encounter Results * (ABNORMAL) Lipid panel (06/19/2024 8:15 AM EDT) Triglycerides 104 0 - 249 mg/dL 06/19/2024 9:09 AM T [facility] Cholesterol 174 0 - 199 mg/dL 06/19/2024 9:09 AM T [facility] Comment: 200 to 239 mg/dL = Moderate (borderline) >239 mg/dL = High HDL Cholesterol 42 >=40 mg/dL 06/19/2024 9:09 AM [facility] Comment: >=60 mg/dL = Desirable <40 mg/dL = Increased Risk All other components are listed individually or are calculations VLDL Cholesterol 20.8 5 - 40 mg/dL 06/19/2024 9:09 AM T [facility] Cholesterol/HDL ratio 4.1(H) 0.0 - 3.2 06/19/2024 9:09 AM [facility] LDl/HDL Ratio 3 0 - 4 06/19/2024 9:09 AM [facility] RISK COMP 4 06/19/2024 9:09 AM [facility] LDL Cholesterol, Calculated 111(H) 0 - 99 mg/dL 06/19/2024 9:09 AM [facility] Blood Venipuncture / Unknown 06/19/2024 8:15 AM EDT 06/19/2024 8:19 AM EDT Flores ROJAS LAB BLOOD ORDERABLES Final Re sult Performing Organization Address [facility] Co de Phone Number [facility] [address] [phone] * (ABNORMAL) T4, free (06/19/2024 8:15 AM EDT) Free T4 1.66(H) 0.76 - 1.46 ng/dL 06/19/2024 9:09 AM EDT [facility] Blood Venipuncture / Unknown 06/19/2024 8:15 AM EDT 06/19/2024 8:19 AM EDT Flores ROJAS LAB BLOOD ORDERABLES Final Re sult Performing Organization Address [facility] de Phone Number [facility] [address] [phone] * (ABNORMAL) Comprehensive metabolic panel (06/19/2024 8:15 AM EDT) Pathologist [facility] Sodium 135(L) 136 - 146 meq/L 06/19/2024 9:09 AM EDT [facility] Potassium 3.6 3.5 - 5.1 meq/L 06/19/2024 9:09 AM EDT [facility] Chloride 107 102 - 112 meq/L 06/19/2024 9:09 AM EDT [facility] CO2 27 21 - 32 meq/L 06/19/2024 9:09 AM EDT [facility] Calcium 9.3 8.4 - 10.1 mg/dL 06/19/2024 9:09 AM EDT [facility] Glucose 94 74 - 106 mg/dL 06/19/2024 9:09 AM EDT [facility] BUN 10 7 - 22 mg/dL 06/19/2024 9:09 AM EDT [facility] Creatinine 1.13(H) 0.55 - 1.02 mg/dL 06/19/2024 9:09 AM EDT [facility] BUN/Creatinine 9 8 - 20 06/19/2024 9:09 AM EDT [facility] Albumin 4.2 3.4 - 5.0 g/dL 06/19/2024 9:09 AM EDT [facility] Alkaline Phosphatase 51 27 - 136 U/L 06/19/2024 9:09 AM EDT [facility] ALT 32 13 - 56 U/L 06/19/2024 9:09 AM EDT [facility] AST 21 5 - 37 U/L 06/19/2024 9:09 AM EDT [facility] Total Bilirubin 0.7 0.2 - 1.2 mg/dL 06/19/2024 9:09 AM EDT [facility] Protein, Total 7.5 6.4 - 8.2 gm/dL 06/19/2024 9:09 AM EDT [facility] Anion Gap 5(L) 9 - 20 06/19/2024 9:09 AM EDT [facility] A/G Ratio 1.3 1.1 - 2.5 06/19/2024 9:09 AM EDT [facility] Globulin 3.3 1.5 - 4.5 g/dL 06/19/2024 9:09 AM EDT [facility] Osmolality Calc 268.9 9:09 AM EDT [facility] eGFR (mL/min/1.73m2) 60 >=60 mL/min/1.7 3m2 06/19/2024 9:09 AM EDT [facility] Comment:ESTIMATED GFR IS NOT ACCURATE CREATININE CLEARANCE IN PREDICTING GLOMERULAR FILTRATION RATE. ESTIMATED GFR IS NOT APPLICABLE FOR DIALYSIS PATIENTS. Blood Venipuncture / Unknown 06/19/2024 8:15 AM EDT 06/19/2024 8:19 AM EDT us Flores ROJAS LAB BLOOD ORDERABLES Final Re sult [facility] [address] [phone] * (ABNORMAL) TSH (06/19/2024 8:15 AM EDT) TSH 0.185(L) 0.358 - 3.740 uIU/mL 06/19/2024 9:09 AM EDT [facility] Blood Venipuncture / Unknown 06/19/2024 8:15 AM EDT 06/19/2024 8:19 AM EDT Narrative [facility] - 06/19/2024 9:09 AM EDT Biotin supplements can cause clinically significant incorrect lab results. The FDA has seen an increase in the number of reported adverse events related to biotin interference with lab tests. us Flores ROJAS LAB BLOOD ORDERABLES Final Re sult [facility] [address] [phone] documented in this encounter Visit Diagnoses Diagnosis Other migraine without status migrainosus, intractable- Primary Hypothyroidism, unspecified type Essential hypertension Unspecified essential hypertension Screening, lipid documented in this encounter Care Teams Doughmaker Relationship Specialty Start Date End Date Flores Jauregui PA [address] [place] [address] PCP - General Physician Apprentice Plumber 12/09/22 documented as of this encounter
--- OUTSIDE RECORDS SUMMARY | 2025-03-30 17:32 | XMS_ITS | Encounter Summary ---
Author Organization [employer] ([place], [place], [place], [place]) Address [address] [place] [address] Care Team Providers Care Recruiting Intern Name Role Phone Flores Jauregui Primary Care Provider [phone] Reason for Referral * MRI (Routine) - Closed Specialty Diagnoses / Procedures Referred By Contac t Referred To Contact Radiology Diagnoses Lumbar back pain with radiculopathy affecting right lower extremity Procedures MR spine lumbar without IV contrast Flores Jauregui PA [address] [place] [address] Phone: tel: fax: Referral ID Status Reason Start Date Expiration Date Visits Re quested Visits Authorized [id number] Closed 02/18/2023 08/17/2023 1 1 Encounter Details Date Type Department Care Team (Late st Contact Info) Description 02/18/2023 Outside Orders [facility] Central Scheduling 1 [place] [address] Flores Jauregui PA [address] [place] [address] Lumbar radiculopathy (Primary Dx) Social History Tobacco Use Types Packs/Day Years Used Date Smoking Tobacco: Never Assessed Comments Unknown Sex and Gender Information Value Date Recorded Sex Assigned at Not on file Legal Sex Female 4:38 PM CDT Gender Identity Not on file Sexual Orientation Not on file documented as of this encounter Plan of Treatment Upcoming Encounters Date Type Department Care Team (Late st Contact Info) Description 04/23/2025 3:15 PM EDT Office Visit [facility] Primary Care [address] [place] [address] Carl Freedman MD [address] [place] [address] documented as of this encounter Results * MR spine lumbar without IV contrast (02/25/2023 7:37 AM EDT) Anatomical Region Laterality Modality L-spine Magnetic Resonan ce (MRI) 02/25/2023 9:28 AM EDT Impressions 02/25/2023 9:50 AM EDT L4-5 degenerative disc disease as above.. Images reviewed, interpreted, and dictated by Chai Winslow MD Narrative 02/25/2023 9:50 AM EDT MRI LUMBAR SPINE WITHOUT CONTRAST HISTORY: Acute lumbar back pain. PROCEDURE: Multiplanar MR imaging of the lumbar spine was performed in multiple MR sequences. FINDINGS: The cord terminates appropriately. Disc signal is diminished at L4-5. There is mild anterolisthesis at L4-5. L3-4: There is facet hypertrophy and a broad-based disc bulge. There is no stenosis. L4-5: There is facet hypertrophy and a broad-based disc bulge. There is moderate central canal stenosis. There is moderate right and severe left neural foraminal stenosis. There is a small cyst adjacent to the left facet joint. L5-S1: There is facet hypertrophy and a broad-based disc bulge. There is no stenosis. Procedure Note Nhan Winslow MD - 02/25/2023 MRI LUMBAR SPINE WITHOUT CONTRAST HISTORY: Acute lumbar back pain. PROCEDURE: Multiplanar MR imaging of the lumbar spine was performed in multiple MR sequences. FINDINGS: The cord terminates appropriately. Disc signal is diminished at L4-5. There is mild anterolisthesis at L4-5. L3-4: There is facet hypertrophy and a broad-based disc bulge. There is no stenosis. L4-5: There is facet hypertrophy and a broad-based disc bulge. There is moderate central canal stenosis. There is moderate right and severe left neural foraminal stenosis. There is a small cyst adjacent to the left facet joint. L5-S1: There is facet hypertrophy and a broad-based disc bulge. There is no stenosis. IMPRESSION: L4-5 degenerative disc disease as above.. Images reviewed, interpreted, and dictated by Chai Winslow MD us Flores ROJAS IMG MRI ORDERABLES Final Resu lt documented in this encounter Visit Diagnoses Diagnosis Lumbar radiculopathy- Primary Thoracic or lumbosacral neuritis or radiculitis, unspecified Lumbar radiculopathy Thoracic or lumbosacral neuritis or radiculitis, unspecified documented in this encounter Care Teams Recruiting Intern Relationship Specialty Start Date End Date Flores Jauregui, BOB [address] [place] [address] PCP - General Physician Immunohematologist 12/09/22 documented as of this encounter
--- OUTSIDE RECORDS SUMMARY | 2025-03-30 17:33 | XMS_ITS | Patient Health Record ---
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 Name Role Phone Estee Youngian Primary Care Provider [phone] Flores Jauregui Unavailable [phone] Allergies No Known Allergies Results Component Value Reference Range Notes H-VITAMIN B12 Reviewed date:01/16/2025 03:44:16 PM Interpretation:Normal Performing Lab: Notes/Report: VITB12 430 [id number] pg/mL Lipid Profile Reviewed date:06/22/2024 02:11:35 PM Interpretation:see cmp Performing Lab: Notes/Report: see cmp TSH Reviewed date:06/22/2024 02:11:35 PM Interpretation:see cmp Performing Lab: Notes/Report: see cmp CMP Reviewed date:01/16/2025 03:44:17 PM Interpretation: Performing Lab: Notes/Report: CMP Reviewed date:01/16/2025 03:44:17 PM Interpretation: Performing Lab: Notes/Report: T4 Free Reviewed date:06/22/2024 02:11:35 PM Interpretation:see cmp Performing Lab: Notes/Report: see cmp B12 Reviewed date:06/22/2024 02:11:35 PM Interpretation:see cmp Performing Lab: Notes/Report: see cmp CBC Reviewed date:06/22/2024 02:11:35 PM Interpretation: Performing Lab: Notes/Report: Medications Medication SIG (Take, Route, Frequency, Duration) Notes Start Date End Date Status Synthroid 112 MCG 1 tablet in the morning on an empty stomach Orally Once a day; Duration: 30 days 01/24/2025 Active Nurtec 75 MG 1 tablet on the tong ue and allow to dissolve Orally every other day 08/03/2024 Not-Winnie mendoza Contrave 8-90 MG 2 tablets Orally Two times a day; Duration: 90 days Active Diclofenac Sodium 75 MG 1 tab(s) Orally two times a day as needed; Duration: 90 days Active Ubrelvy 100 MG 1 tab(s) orally once daily, prn Not-Taking Qulipta 10 MG 1 tablet Orally Once a day; Duration: 90 days 06/08/2024 Active Liothyronine Sodium 5 MCG 1 tab(s) orall y once a day; Duration: 90 days Active Tretinoin 0.01 % APPLY TO THE FACE ON CE DAILY IN THE EVENING; Duration: 30 Not-Taking Furosemide 20 MG 1 tab(s) orally once a day as needed Active Tretinoin 0.1 % 1 application in the evening to face Externally Once a day 01/24/2025 Active Topiramate 25 MG Take 1 tablet by adela th once daily; Duration: 30 Not-Taking Cyclobenzaprine HCl 10 MG 1 tab(s) orall y At Bed Time, prn; Duration: 90 days Active Spironolactone 100 MG 2 tab Orally Once a day; Duration: 90 days Not-Takin g Qulipta 60 MG 1 tablet Orally Once a day; Duration: 90 days 09/28/2024 Active Escitalopram Oxalate 5 MG 1 tab orally o nce a day; Duration: 90 days Active Ondansetron 4 MG 1 tablet on the tong ue and allow to dissolve Orally three times a day as needed 06/08/2024 Not-Taking Immunizations Vaccine Route Administration Date Status Comme nts xFluzone (6mos and older)-trivalent Unknown 07/31/2022 Administered ppd Unknown 04/18/2021 Administered Fluzone PF Quad (6-35 months) Unknown 06/17/2020 Admini stered Fluzone PF Quad (6-35 months) Unknown 08/03/2023 Admini stered COVID 19 Moderna Unknown 11/27/2020 Administered COVID 19 Moderna Unknown 12/25/2020 Administered Problems Problem Type SNOMED Code ICD Code Onset Dates Problem Status W/U Status Risk Notes Problem Sinusitis (59748284) Sinusitis (J32.9) Active confirmed Problem Essential hypertension (40204778) Essential hypertension (I10) Active confirmed Problem Anxiety (26017892) Anxiety (F41.9) Active confirmed Problem Degeneration of lumbar intervertebral disc (46540741) Degenerative disc disease, lumbar (M51.36) Active confirmed Problem Acne (01595582) Acne (L70.9) Active confirmed Problem Hypothyroidism (61143488) Hypothyroidism, unspecified hypothyroidism type (E03.9) Active confirmed Problem Adjustment disorder with anxious mood (43384342) Adjustment disorder with anxious mood (F43.22) Active confirmed Problem Seasonal allergic rhinitis (845013437) Seasonal allergic rhinitis, unspecified allergic rhinitis trigger (J30.2) Active confirmed Problem Refractory migraine (437949391) Intractable migraine without status migrainosus, unspecified migraine type (G43.919) Active confirmed Problem Intractable chronic migraine with aura and without status migrainosus (G43.E19) Active confirmed Vital Signs Heart Rate 84 /min 01/24/2025 Blood pressure diastolic 76 mm Hg 01/24/2025 Height 66 in 01/24/2025 Blood pressure systolic 120 mm Hg 01/24/2025 Weight 156.4 lbs 01/24/2025 BMI 25.24 kg/m2 01/24/2025 Encounters Encounter Location Date Provider Diagnosis [facility] [address] [id number] 06/08/2024 Flores Crowgerda Essential hypertensi on I10 ; Hypothyroidism, unspecified hypothyroidism type E03.9 ; Intractable migraine without status migrainosus, unspecified migraine type G43.919 ; Nausea R11.0 ; Anxiety F41.9 ; Weight gain R63.5 ; Acne, unspecified acne type L70.9 ; Muscle spasm of back M62.830 and Screening, lipid Z13.220 [facility] [address], [place] [id number] 01/24/2025 Flores Crowgerda Hypothyroidism, unspecified hypothyroidism type E03.9 ; Routine physical examination Z00.00 ; Essential hypertension I10 ; Screening for lipid disorders Z13.220 ; Intractable migraine without status migrainosus, unspecified migraine type G43.919 ; Anxiety F41.9 ; Adult acne L70.9 and BMI 25.0-25.9,adult Z68.25 [facility] [address] [place], [place] [id number] 06/21/2024 Flores Crowdy Hypothyroidism, unspecified hypothyroidism type E03.9 [facility] [address] [place], [place] [id number] 07/03/2024 Flores Crowdy [facility] [address] [place], [place] [id number] 08/31/2024 Flores Crowdy Intractable migraine without status migrainosus, unspecified migraine type G43.919 [facility] [address] [place], [place] [id number] 09/14/2024 [place] [facility] [address] [place], [place] [id number] 09/28/2024 Flores Crowdy Intractable chronic migraine with aura and without status migrainosus G43.E19 [facility] [address] [place], [place] [id number] 09/29/2024 Flores Crowdy [facility] [address] [place], [place] [id number] 01/10/2025 Flores Crowdy [facility] [address] [place], [place] [id number] 01/11/2025 Jos[place] [facility] [address] [place], [place] [id number] 01/16/2025 Flores Crowdy [facility] [address] [place], [place] [id number] 02/15/2025 Josiah [place] Hypothyroidism, unspecified hypothyroidism type E03.9 [facility] [address] [place], [place] [id number] 03/19/2025 Jos[place] [facility] [address] [place], [place] [id number] 03/28/2025 Flores Crowdy Hypothyroidism, unspecified hypothyroidism type E03.9 Assessments Encounter Date Diagnosis (ICD Code) Assessment Notes Treatment Notes Treatment Clinical Notes Section Notes 06/08/2024 Essential hypertension (ICD-10 - I10) 06/08/2024 Hypothyroidism, unspecified hypothyroidism type (ICD-10 - E03.9) 06/21/2024 Hypothyroidism, unspecified hypothyroidism type (ICD-10 - E03.9) 08/31/2024 Intractable migraine without status migrainosus, unspecified migraine type (ICD-10 - G43.919) 01/24/2025 Routine physical examination (ICD-10 - Z00.00) 01/24/2025 Hypothyroidism, unspecified hypothyroidism type (ICD-10 - E03.9) 03/28/2025 Hypothyroidism, unspecified hypothyroidism type (ICD-10 - E03.9) 02/15/2025 Hypothyroidism, unspecified hypothyroidism type (ICD-10 - E03.9) 09/28/2024 Intractable chronic migraine with aura and without status migrainosus (ICD-10 - G43.E19) 01/24/2025 Essential hypertension (ICD-10 - I10) 06/08/2024 Intractable migraine without status migrainosus, unspecified migraine type (ICD-10 - G43.919) 06/08/2024 Nausea (ICD-10 - R11.0) 01/24/2025 Screening for lipid disorders (ICD-10 - Z13.220) 06/08/2024 Anxiety (ICD-10 - F41.9) 01/24/2025 Intractable migraine without status migrainosus, unspecified migraine type (ICD-10 - G43.919) 01/24/2025 Anxiety (ICD-10 - F41.9) 06/08/2024 Weight gain (ICD-10 - R63.5) 06/08/2024 Acne, unspecified acne type (ICD-10 - L70.9) 01/24/2025 Adult acne (ICD-10 - L70.9) 01/24/2025 BMI 25.0-25.9,adult (ICD-10 - Z68.25) 06/08/2024 Muscle spasm of back (ICD-10 - M62.830) 06/08/2024 Screening, lipid (ICD-10 - Z13.220) Plan Of Treatment Pending Test Test Name Order Date MRI : Spine, Lumbosacral, without contra st 02/17/2023 TSH 11/13/2022 CMP 11/13/2022 T4 Free 11/13/2022 lipid profile 11/13/2022 H-TSH 03/28/2025 H-T4 free 03/28/2025 Insurance Providers Payer Name Payer Address Payer Phone Subscriber Number Group Number Insured Name Patient Relationship to Insured Coverage Start Date Coverage End Date [employer]LEX[employer]ATH[employer]SHIRA [employer] [address] [place] [address] [id number] Mary Powell Self - patient is the insured Medications Administered Medication Instructions Date of Administration Dosage Notes Dexamethasone 12/15/2011 4 mg Dexamethasone 08/31/2018 1 mL Dexamethasone 01/13/2022 1 mL Toradol 06/26/2021 60 mg Pt tolerated w ell Medical (General) History Medical History History ICD Code Hypothyroidism, followed by [facility] end[facility] Allergic Rhinitis Migraine Headache Surgical History Surgery Date(Month/Year) Bilateral Lasik 01/11/2014 Breast Augmentation Uterine Ablation 02/2020
--- OUTSIDE RECORDS SUMMARY | 2025-03-30 17:33 | XMS_ITS | Data Portability ---
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 Lab urinalysis complete, reflex culture 2020 021 [facility], [address] [place] [address], [id number], 14:12:57 TSH, serum or plasma 2020 021 [facility], [address] [place] [address], [id number], 14:30:50 T4, free, serum 2020 021 [facility], [address] [place] [address], [id number], 1 14:22:51 T3, free, serum or plasma 2020 021 [facility], [address] [place] [address], [address], 1 14:22:49 TSH, serum or plasma 2019 020 [facility], [address] [place] [address], [id number], 0 15:31:44 T4, free, serum 2019 020 [facility], [address] [place] [address], [address], 0 15:31:42 T3, free, serum or plasma 2019 020 [facility], [address] [place] [address], [address], 0 15:31:45 TSH, serum or plasma 2018 019 [facility], [address] [place] [address], [address], 9 11:23:32 T4, free, serum 2018 019 [facility], [address] [place] [address], [address], 9 11:23:32 T3, free, serum or plasma 2018 019 [facility], [address] [place] [address], [id number], 9 11:23:32 Referral None recorded. Procedures None recorded. Surgeries None recorded. Imaging US, neck, soft tissue - To be done before next visit after 1 year in October [id number] [email or web address] 1 [facility], [address] [place] [address], [id number], 2 09:16:49 US, neck, soft tissue - One-year follow-up ultrasound before next visit after 1 year in September 20192018 019 [facility], [address] [facility], [place], [address], 0 17:19:34 Medication Orders liothyroni ne 5 mcg tablet 2020 021 Pharm[place], [place], [address], 1 13:19:03 levothyrox ine 125 mcg tablet 2020 021 [facility], [place], [address], 1 13:19:04 Topamax 25 mg tablet 2018 019 INTERFACE [facility] [place], [address], 9 10:04:42 Ajovy Syringe 225 mg/1.5 mL subcutaneo us [email or web address] [place] [address] Pharm[address] [place], [address], 0 14:15:22 Compound Progestero ne Cream 4% (20 mg/0.5 mL) 2018 019 [email or web address] [facility], [address] [place] [address], [id number], 0 14:15:08 Relpax 40 mg tablet 2018 019 INTERFACE [facility], [place], [address], 9 10:04:28 Zofran 4 mg tablet 2018 019 INTERFACE [facility], [place], [address], 9 10:04:27 liothyroni ne 5 mcg tablet 2018 019 INTERFACE [facility], [facility], [place], [address], 9 14:31:34 Synthroid 137 mcg tablet 2018 019 [email or web address] [facility], [place], [address], 1 13:35:21 Topamax 25 mg tablet 2017 018 INTERFACE [facility], [facility] [place], [address], 8 10:02:33 Ajovy Syringe 225 mg/1.5 mL subcutaneo us 2017 018 [email or web address] [facility], [facility] [place], [address], 0 14:15:22 Patient TargetsNo targets recorded. Patient Instructions Encounter Date Encounter Id Patient Instructions Last Modified By Organization Details Last Modified Time 08/12/2018 [id number] migraine aura without a headache: care instructions [email or web address] Not available 08/12/2018 10:02:22 10/13/2018 [id number] vitaliy's thyroiditis: care instructions wayoub Not available 10/13/2018 14:31:32 goiter: care instructions wayoub Not available 10/13/2018 14:31:32 hypothyroidism: care instructions wayoub Not available 10/13/2018 14:31:32 07/27/2019 [id number] neck pain: care instructions [email or web address] Not available 07/27/2019 10:04:25 teeth grinding: care instructions [email or web address] Not available 07/27/2019 10:04:25 migraine aura without a headache: care instructions [email or web address] Not available 07/27/2019 10:04:25 - Continue Topam ax and Ajovy. - will give a trial to progesterone topical to see if we can regulate her menstrual cycle - PRN nerve blocks and TPIs (not covered by her new insurance) - recommend she wear bite guard every night and give a another trial of Botox to the masseters - now off amitriptyline (stay off) - Continue ASA 81 mg daily - Zofran at onset migraine aura or migraine, then Relpax - would repeat Botox 20 to masseters for bruxism If predictable beginning 1 day prior to anticipated menstrual migraine begin Aleve 1 tab q12h x 3 days - consider trial of Lexapro and d/c Pristiq - recommend she set time daily for her vitamins include MVI (w/iron while still menstruating), vit D3 2000 iu, B12 500-1000 mcg daily, CoQ10 200 mg and reacted magnesium Recommend repeat Botox 15-20 units for bruxism +/- 15 units for corrugators/procer us cosmetic, may help with migraines. Recommend she use her bite guard every night. - RTC 6 months or sooner PRN and PRN nerve blocks [email or web address] Not available 07/27/2019 10:08:55 11/15/2019 [id number] vitaliy's thyroiditis: care instructions wayoub Not available 11/15/2019 14:27:26 goiter: care instructions wayoub Not available 11/15/2019 14:27:26 11/08/2020 [id number] painful urinatio n (dysuria): care instructions wayoub Not available 11/08/2020 13:19:03 goiter: care instructions wayoub Not available 11/08/2020 13:22:42 Reason for Referral None Reported. Results Created Date Observation Date Name Description Value Unit Range Abnormal Flag Note LastModifiedBy Organization Detail LastModifiedTime 11/15/19 20 11/15/2019 T4, free, serum T4,free 1.47 NG/dL 0.93-1 .70 normal Not Available [facility] [address] [place], [address], 11/15/2019 15:31:42 11/15/19 20 11/15/2019 TSH, serum or plasm a TSH 0.068 uIU/m L 0.290- 5.500 low Not Available [facility] [place], [address], 11/15/2019 15:31:44 11/15/19 20 11/15/2019 T3, free, serum or plasm a T3 free 3.61 pg/mL 2.00-4 .40 normal Not Available [facility] [address] [place] [address], [id number], 11/15/2019 15:31:45 11/08/19 21 11/08/2020 urina lysis compl ete, refle x cultu re color YELLOW normal Not Available [facility] [address] [place] [address], [address], 11/08/2020 14:12:57 11/08/19 21 11/08/2020 urina lysis compl ete, refle x cultu re appearance CLEAR normal Not Available [facility] [address] [place] [address], [address], 11/08/2020 14:12:57 11/08/19 21 11/08/2020 urina lysis compl ete, refle x cultu re glucose NORMAL mg/dL normal normal Not Available [facility] [address] [place] [address], [address], 11/08/2020 14:12:57 11/08/19 21 11/08/2020 urina lysis compl ete, refle x cultu re bilirubin NEGATI VE mg/dL negati ve normal Not Available [facility] [address] [place] [address], [address], 11/08/2020 14:12:57 11/08/19 21 11/08/2020 urina lysis compl ete, refle x cultu re ketone 5 mg/dL negati ve abnormal Not Available [facility] [address] [place] [address], [address], 11/08/2020 14:12:57 11/08/19 21 11/08/2020 urina lysis compl ete, refle x cultu re specific gravity 1.017 1.003- 1.035 normal Not Available [facility] [address] [place] [address], [address], 11/08/2020 14:12:57 11/08/19 21 11/08/2020 urina lysis compl ete, refle x cultu re blood NEGATI VE /uL negati ve normal Not Available [facility] [address] [place] [address], [address], 11/08/2020 14:12:57 11/08/19 21 11/08/2020 urina lysis compl ete, refle x cultu re pH 8 5.0 - 8.0 normal Not Available [facility] [address] [place] [address], [address], 11/08/2020 14:12:57 11/08/19 21 11/08/2020 urina lysis compl ete, refle x cultu re protein NEGATI VE mg/dL negati ve normal Not Available [facility] [address] [place] [address], [address], 11/08/2020 14:12:57 11/08/19 21 11/08/2020 urina lysis compl ete, refle x cultu re urobilinogen NORMAL mg/dL normal normal Not Available [facility] [address] [place] [address], [address], 11/08/2020 14:12:57 11/08/19 21 11/08/2020 urina lysis compl ete, refle x cultu re nitrite NEGATI VE negati ve normal Not Available [facility] [address] [place] [address], [address], 11/08/2020 14:12:57 11/08/19 21 11/08/2020 urina lysis compl ete, refle x cultu re leukocyte esterase NEGATI VE /uL negati ve normal Not Available [facility] [address] [place] [address], [address], 11/08/2020 14:12:57 11/08/19 21 11/08/2020 urina lysis compl ete, refle x cultu re mucus, urine TRACE /lpf normal Not Available [facility] [address] [place] [address], [address], 11/08/2020 14:12:57 11/08/19 21 11/08/2020 urina lysis compl ete, refle x cultu re WBC, urine 5-10 0-5/hp f abnormal Not Available [facility] [address] [place] [address], [address], 11/08/2020 14:12:57 11/08/19 21 11/08/2020 urina lysis compl ete, refle x cultu re RBC, urine 0-2 0-2/hp f normal Not Available [facility] [address] [place] [address], [address], 11/08/2020 14:12:57 11/08/19 21 11/08/2020 urina lysis compl ete, refle x cultu re squamous epi. cells 0-5 0-5/hp f normal Not Available [facility] [address] [place] [address], [address], 11/08/2020 14:12:57 11/08/19 21 11/08/2020 urina lysis compl ete, refle x cultu re transitional epi. cells RARE /hpf normal Not Available [facility] [address] [place] [address], [address], 11/08/2020 14:12:57 11/08/19 21 11/08/2020 urina lysis compl ete, refle x cultu re reflex culture see below normal UA resul ts do not meet cultu re crite morgan. Not Available [facility] [address] [place] [address], [address], 11/08/2020 14:12:57 11/08/19 21 11/08/2020 T3, free, serum or plasm a T3 free 3.23 pg/mL 2.00-4 .40 normal Not Available [facility] [address] [place] [address], [address], 11/08/2020 14:22:49 11/08/19 21 11/08/2020 T4, free, serum T4,free 1.09 NG/dL 0.93-1 .70 normal Not Available [facility] [address] [place] [address], [address], 11/08/2020 14:22:51 11/08/19 21 11/08/2020 TSH, serum or plasm a TSH 0.128 uIU/m L 0.290- 5.500 low Not Available [facility] [address] [place] [address], [address], 11/08/2020 14:30:49 10/10/19 19 10/10/2018 US, neck, soft tissu e [facility] [address] [place] [address] [place] [address] Patijoanie hernandez Name: ASHLEE hernandez : [phone] hernandez [facility] Provid er: IVY GRIDER EXAM DATE: 2018 EXAM: US ECHO THYROI D OR PAROTI D CLINIC AL INFORM ATION: Thyroi ditis TECHNI QUE: Multip le sonogr aphic images of the thyroi d gland were obtain ed. COMPAR OLY: 2016 FINDIN GS: Isthmu s measur es 0.25 cm in thickn ess. Right lobe measur es 4.6 x 1.5 x 2 cm. Left lobe measur es 3.9 x 1.3 x 1.3 cm. The gland is normal in size and hetero geneou s in echote xture. The gland is hyperv ascula r. Bilate ral solid nodule s. In the right there is a 12 x 10 x 11 mm nodule . On the left there is a 7 x 6 x 5 mm nodule . The right nodule is unchan ged. Left nodule s grossl y stable on review of the prior study IMPRES TAY: Hetero geneou s gland with bilate ral thyroi d nodule s Interp reted By: Marciano Rivera MD Electr onical ly Signed By: Marciano Rivera MD on 3:25 PM [facility] [address] [place] [address], [phone], 10/18/2018 06:40:19 10/24/19 20 10/24/2019 US, neck, soft tissu e [facility] [address] [place] [address] [facility] [place] [address] Patien mary Name: ASHLEE hernandez : [phone] hernandez [facility] Provid er: IVY GRIDER EXAM DATE: 2019 EXAM: US ECHO THYROI D OR PAROTI D CLINIC AL INFORM ATION: Hashim rere thyroi ditis. Follow -up nodule . TECHNI QUE: Multip le sonogr aphic images of the thyroi d gland were obtain ed. COMPAR OLY: Compar oly was made with images and report of US thyroi d . FINDIN GS: Isthmu s measur es 0.2 cm in thickn ess. Right lobe measur es 4.8 x 1.6 x 1.8 cm. Left lobe measur es 3.5 x 1.4 x 1.6 cm. The gland is normal in size and hetero geneou s in echote xture. Bilate ral thyroi d nodule s are seen. The domina nt nodule on the right measur es 13 x 9 x 11 mm. Domina nt nodule on the left measur es 7 x 6 x 6 mm. IMPRES TAY: Appear ance is of Hashim rere thyroi ditis. Bilate ral thyroi d nodule s are stable in size and appear ance. Interp reted By: Chelsea Patel MD Electr onical ly Signed By: Chelsea Patel MD on 10/24/19 5:14 PM [facility] [address] [place], [address], 10/27/2019 05:33:30 Result Notes None recorded. Problems No Known Problems Procedures Surgical History Date Name Laterality Status Provider Name and Address Organization Details Recorded Time 08/12/20 18 Nerve Block & Trigger Points completed JEANETH PETERS MD [address] [place], [address], [facility] 08/12/2018 09:57:58 07/14/20 17 Electromyography (EMG) with Nerve Conduction Study (NCV) completed Lorena Sierra (Nicky) [facility] 07/14/2017 09:43:44 06/11/20 17 Botox Injection - Migraine completed Emily Tam [facility] 06/11/2017 16:23:27 06/11/20 17 Nerve Block; Occipital Nerve(s) completed JEANETH PETERS MD [address] [place], [address] [place] [address] 06/11/2017 17:55:37 03/25/20 17 Nerve Block; Occipital Nerve(s[place] [address] [place] [address], [phone] [place] [address] 03/25/2017 16:38:23 12/23/19 17 Nerve Block; Occipital Nerve(s) completed JEANETH PETERS MD [address] [place] [address], [phone] [place] [address] 12/22/2016 17:07:13 09/17/20 16 Tympanogram completed LAUREN HENDRICKS [address] [place], [phone] [place] [address] 09/17/2016 11:48:03 09/17/20 16 Endoscopy Nasal; Biospy, Polypectomy or Debridement completed Jacquie Saavedra [facility] 09/17/2016 12:09:14 09/10/20 14 [facility] 10:14:53 03/13/[address] [facility] [place]/17/[place] 10:14:59 Imaging Results None recorded. Procedure Notes None recorded. Medical Equipment None Reported. Allergies No known drug allergies Medications Name Sig Start Date Stop Date Status Note LastModified by Organization Details LastModified Time Compound Progester one Cream 4% (20 mg/0.5 mL) 1/2 mL topical daily x 12 days beginnin g on day 14 of your menstrua l cycle 11/15 completed Not Available Not Available Not Available Compound Topical Cream Muscle Relaxant Cream Apply 1 to 2 grams tid - qid topicall y to affected tense areas 06/11 completed Not Available Not Available Not Available amoxicill in 500 mg capsule 08/26 completed Not Available Not Available Not Available furosemid e 40 mg tablet 07/27 completed prn Not Available Not Available Not Available promethaz ine-DM 6.25 mg-15 mg/5 mL oral syrup 11/15 completed Not Available Not Available Not Available venlafaxi ne ER 37.5 mg capsule,e xtended release 24 hr 12/07 completed Not Available Not Available Not Available potassium chloride ER 10 mEq capsule,e xtended release active Not Available Not Available Not Available prednison e 10 mg tablet PLEASE SEE ATTACHED FOR DETAILED DIRECTIO NS 11/08 completed Not Available Not Available Not Available venlafaxi ne ER 75 mg capsule,e xtended release 24 hr 11/15 completed Not Available Not Available Not Available fexofenad ine 60 mg tablet 09/17 completed Not Available Not Available Not Available azithromy meme 250 mg tablet 08/26 completed Not Available Not Available Not Available Lidocaine Viscous 2 % mucosal solution 08/26 completed Not Available Not Available Not Available fluconazo le 150 mg tablet 07/27 completed Not Available Not Available Not Available benzonata te 200 mg capsule 12/07 completed Not Available Not Available Not Available metoprolo l succinate ER 50 mg tablet,ex tended release 24 hr TAKE 1 TABLET BY MOUTH EVERY DAY 11/08 completed Not Available Not Available Not Available atenolol 100 mg tablet one daily active Not Available Not Available No t Available valacyclo vir 1 gram tablet 11/15 completed Not Available Not Available Not Available hydrocodo ne 5 mg-acetam inophen 325 mg tablet 11/08 completed Not Available Not Available Not Available tretinoin 0.025 % topical cream Every night at bedtime 09/17 completed Instruct ions: to face qhs;Freq uency: qhs;Medi cation Descript ion: tretinoi n topical; Dosage:a s directed ; Route:to pical; refills: 1; Quantity :40gms cream Not Available Not Available Not Available Synthroid 150 mcg tablet Take 1 tablet every day by oral route. 07/27 completed Not Available Not Available Not Available ondansetr on HCl 8 mg tablet 08/26 completed Not Available Not Available Not Available minocycli ne 100 mg capsule 06/11 completed Not Available Not Available Not Available meloxicam 15 mg tablet 06/11 completed Not Available Not Available Not Available ondansetr on HCl 4 mg tablet TAKE 1 TABLET AT ONSET OF MIGRAINE . MAY REPEAT EVERY 8 HOURS NEEDED active Not Available Not Available No t Available spironola ctone 100 mg tablet TAKE 2 TABLETS BY MOUTH EVERY DAY active Not Available Not Available No t Available sumatript an 50 mg tablet 12/07 completed Not Available Not Available Not Available topiramat e 25 mg tablet TAKE 1 TABLET BY MOUTH TWICE A DAY active Not Available Not Available No t Available fexofenad ine 180 mg tablet 09/17 completed Not Available Not Available Not Available ciproflox acin 500 mg tablet active Not Available Not Available No t Available sulfameth oxazole 800 mg-trimet hoprim 160 mg tablet TAKE 1 TABLET BY MOUTH TWICE A DAY FOR 10 DAYS active Not Available Not Available No t Available liothyron ine 5 mcg tablet TAKE 1 TABLET EVERY MORNINGW ITH LEVOTHYR OXINE AND 1 TABLET AT BEDTIME 2020 active 10/31/21- 11/08/20 Not Available Not Available Not Available tramadol 50 mg tablet 09/17 completed Not Available Not Available Not Available amitripty line 50 mg tablet Take 1 tablet every day by oral route at bedtime. 08/04 completed Not Available Not Available Not Available triamcino lone acetonide 0.1 % topical cream 08/04 completed Not Available Not Available Not Available Cortrosyn 0.25 mg solution for injection INJECT 0.25 MG BY INTRAMUS CULAR ROUTE ONCE 08/26 completed Not Available Not Available Not Available amitripty line 25 mg tablet Take 1 tablet every day by oral route. 10/12 completed Not Available Not Available Not Available triamcino lone acetonide 0.025 % topical cream 12/07 completed Not Available Not Available Not Available meclizine 25 mg tablet prn active Not Available Not Available Not Available dexametha sone 2 mg tablet 06/11 completed Not Available Not Available Not Available hydrocodo ne 7.5 mg-acetam inophen 325 mg tablet 08/26 completed Not Available Not Available Not Available cephalexi n 500 mg capsule 08/26 completed Not Available Not Available Not Available oseltamiv ir 75 mg capsule 08/04 completed Not Available Not Available Not Available levothyro xine 125 mcg tablet TAKE 1 TABLET EVERY MORNING, DOSE DECREASE D 2020 active Not Available Not Available Not Avai lable ropinirol e 0.5 mg tablet begin 1 tab qhs; increase to 2 tabs qhs after 3d 10/13 completed Not Available Not Available Not Available Neurontin 100 mg capsule Take 1 cap qhs 10/13 completed prn Not Available Not Available Not Available dexametha sone 4 mg tablet TAKE 1 TABLET BY MOUTH TWICE A DAY FOR 5 DAYS 11/08 completed Not Available Not Available Not Available clotrimaz ole-betam ethasone 1 %-0.05 % topical cream active Not Available Not Available Not Available Effexor 37.5 mg tablet Take 1 tablet twice a day by oral route. 12/07 completed Not Available Not Available Not Available hydrochlo rothiazid e 12.5 mg capsule 06/11 completed Not Available Not Available Not Available minocycli ne 75 mg capsule Two times a day 09/17 completed Instruct ions: needs follow-u p before addition al refills given;Fr equency: bid;Medi cation Descript ion: minocycl ine; Dosage:1 ; Route:or al; refills: 0; Quantity :60 capsule Not Available Not Available Not Available Pred Forte 1 % eye drops,jostin pension 09/17 completed Not Available Not Available Not Available monteluka st 10 mg tablet 09/17 completed Not Available Not Available Not Available mupirocin 2 % topical ointment 09/17 completed Not Available Not Available Not Available furosemid e 20 mg tablet active Not Available Not Available Not Available azelastin e 137 mcg (0.1 %) nasal spray 09/17 completed Not Available Not Available Not Available ibuprofen 600 mg tablet active Not Available Not Available Not Available cefuroxim e axetil 500 mg tablet 10/12 completed Not Available Not Available Not Available levofloxa meme 750 mg tablet 10/13 completed Not Available Not Available Not Available methylpre dnisolone 4 mg tablets in a dose pack 08/26 completed Not Available Not Available Not Available cefdinir 300 mg capsule 11/15 completed Not Available Not Available Not Available fluticaso ne propionat e 50 mcg/actua tion nasal spray,jostin pension 09/17 completed Not Available Not Available Not Available spironola ctone 50 mg tablet 09/17 completed Not Available Not Available Not Available amoxicill in 875 mg-potass ium clavulana te 125 mg tablet 11/15 completed Not Available Not Available Not Available Synthroid 137 mcg tablet 1 tablet daily 10/29 completed Not Available Not Available Not Available eletripta n 40 mg tablet TAKE 1 TABLET AT ONSET OF MIGRAINE . MAY REPEAT EVERY 2 HOURS NEEDED. MAXIMUM OF 2 TABLETS IN 24 HOURS active Not Available Not Available No t Available cyclobenz aprine 5 mg tablet one tab po prn active Not Available Not Available No t Available duloxetin e 60 mg capsule,d elayed release 11/15 completed Not Available Not Available Not Available Zofran 11/15 completed Not Available Not Available Not Available Relpax 06/11 completed Not Available Not Available Not Available ProAir HFA 90 mcg/actua tion aerosol inhaler 07/27 completed Not Available Not Available Not Available Flector 1.3 % transderm al 12 hour patch 08/04 completed Not Available Not Available Not Available desvenlaf axine succinate ER 50 mg tablet,ex tended release 24 hr one tab po daily 11/08 completed Not Available Not Available Not Available desvenlaf axine succinate ER 100 mg tablet,ex tended release 24 hr Take 1 tablet every day by oral route. active Not Available Not Available No t Available venlafaxi ne ER 75 mg tablet,ex tended release 24 hr 06/11 completed Not Available Not Available Not Available L norgest/E estradiol -E estrad 0.1 mg-20 mcg (84)/10 mcg (7) tabs,3mos TAKE 1 TABLET BY MOUTH EVERY DAY 11/08 completed Not Available Not Available Not Available gatifloxa meme 0.5 % eye drops 09/17 completed Not Available Not Available Not Available Silenor 3 mg tablet 08/26 completed Not Available Not Available Not Available Lotemax 0.5 % eye gel drops 09/17 completed Not Available Not Available Not Available Prolensa 0.07 % eye drops 09/17 completed Not Available Not Available Not Available Ajovy Syringe 225 mg/1.5 mL subcutane ous Inject 1.5 mL every month by subcutan eous route for 30 days. 11/15 completed Not Available Not Available Not Available Vitals Date Recorded Body height Body mass index (BMI) Body weight Heart rate Systolic And Diastolic Provider Name and Address Organization Details Last Updated DateTime 10/13/2018 170.18 cm 22.7 kg/m2 69213.89 g 62 /min 104/70 mm[Hg] [facility] 10/13/2018 14:07:40 Date Recorded Body height Body mass index (BMI) Body weight Heart rate Systolic And Diastolic Provider Name and Address Organization Details Last Updated DateTime 11/08/2020 170.18 cm 25.7 kg/m2 43222.15 g 66 /min 116/62 mm[Hg] [facility] 11/08/2020 12:57:50 Date Recorded Body height Body mass index (BMI) Body weight Heart rate Systolic And Diastolic Provider Name and Address Organization Details Last Updated DateTime 11/15/2019 170.18 cm 22.9 kg/m2 49259.49 g 68 /min 112/64 mm[Hg] [facility] 11/15/2019 14:13:57 Date Recorded Body height Body mass index (BMI) Body weight Heart rate Systolic And Diastolic Provider Name and Address Organization Details Last Updated DateTime 07/27/2019 170.18 cm 22.9 kg/m2 50060.49 g 76 /min 116/82 mm[Hg] [facility] 9 09:13:30 Date Recorded Body height Body mass index (BMI) Body weight Heart rate Systolic And Diastolic Provider Name and Address Organization Details Last Updated DateTime 08/12/2018 170.18 cm 23.5 kg/m2 13182.86 g 5 /min 126/74 mm[Hg] Mary String[facility] 8 08:57:30 Social History Question Answer Notes LastModified by Organizat ion Details LastModified Time Tobacco Smoking Status Never Smoker no second hand exposure [facility]17[facility]2016 10:14:20 Live Alone Or With Others? With Others Information not available 12/07/2016 Marital Status Information not available 12/07/2016 What Was The Date Of Your Most Recent Tobacco Screening? 08/12/2018 Information not available 11/07/2019 Sex: Unknown Functional Status Question Answer Note LastModified by Organization D etails LastModified Time What is your level of alcohol consumption? 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 Family History Relationship Description Onset Age of this Age Resolved Age Notes LastModified by Organization Details LastModified Time Mother History of hypertension [email or web address] Not available 10:20:49 Father History of hypertension [email or web address] Not available 10:20:49 Father Heart disease [email or web address] Not available 10/12 10:20:49 Maternal Grandfather Harmful pattern of use of alcohol [email or web address] Not available 10/12 10:20:49 Medical History Condition Response Diabetes N Bleeding Disorder N Arthritis N Emphysema N Acid Reflux (GERD) N Cancer N Migraines Y Asthma N COPD N Depression Y Anesthesia Complications N Heart Disease N Rheumatoid Arthritis N Hypertension N Gynecological HistoryNo gynecological history recorded. Obstetrics History GPAL:G 0 P 0 0 0 0 Past Encounters Encounter ID Performer Location Encounter Start Date Encounter Closed Date Diagnosis/Indication Diagnosis SNOMED-CT Code Diagnosis ICD10 Code Diagnosis Note [id number] MEGHANA ELLIS MD [place] [facility] [address] [place] [address] 09/17/2016 10:01:06 09/17/2016 14:54:58 Allergic rhinitis 70892481 J30.9 Chronic sinusitis 681613 00 J32.9 Migraine 71537935 G43.90 9 - sinus Dysfunctio n of right eustachian tube 3522217147 218854 H69.91 [id number] [facility] [address] [place] [address] 09/17/2016 11:47:32 09/17/2016 11:55:13 Dysfunction of eustachian tube 07644259 H69.91 [id number] JEANETH PETERS MD [facility]OLOGY [facility] [address] [place] [address] 12/07/2016 15:09:46 12/08/2016 07:47:10 Migraine with aura 9696600 G43.109 Pt is having about 10-15 migraine days per month over the past 6 months, sometimes more. Migraine can last 6 hours to several days. Menstrual cycle seems to be a trigger but other times of month they are random. She seems to have a strong cervicogen ic/myofasc ial trigger. Also she grinds her teeth at night and this may be contributi ng. Poor sleep is likely also contributi ng and I've counseled her on the importance of a good nights sleep. She has tried doxepin PRN but this makes her too groggy the next morning and was taking it rarely and only for the insomnia. Will give a trial of amitriptyl ine. I've counselled her on the increased risk for stroke, [place], blood clots in patients with migraine with aura and recommende d she begin ASA 81 mg daily. I've also counseled her on my concern for analgesic rebound and recommende d that she avoid more than 10 analgesics per month. Always treat early and favor the Relpax over Tyelnol or NSAIDs for their SE and for concern of rebound. 1. Schedule R greater, lesser and third occipital nerve blocks and trigger point injections b/l traps, R rhomboid2. Begin amitripytl ine 25 mg qhs3. Begin DoTerra Past Tense to tense muscles.4. Use bite guard at night for bruxism5. Discuss sleep hygiene with and no TV during sleeping hours.6. Begin ASA 81 mg daily7. Zofran at onset migraine aura or migraine, then Relpax8. Jose Med Sinus Rinse +/- Claritin PRN for allergies and use daily Flonase to see if this helps with nasal congestion .9. RTC 2 months and next avail nerve blocks. I provided hand written instructio ns on all listed recommenda tions above. CC: Tamar Wall[place]on. Medication overuse 21446 71649 102 Z91.14 overusing NSAIDs and acetaminop hen; concern for possible analgesic rebound headaches Menstrual migraine 16021 000 G43.839 Advised she keep a diary of migraines relative to her menstrual cycle and try to predict migraines. Then beginning 1 day prior to anticipate d menstrual migraine begin Aleve 1 tab q12h x 3 days Muscle pain 66106831 M79 .1 DoTerra Past Tensemay add muscle relaxant cream Neck pain 12903776 M54.2 [id number] JEANEHT PETERS MD NEUROLOGY [facility] [address] [place] [address] 12/22/2016 14:23:30 12/22/2016 16:39:11 Muscle pain 51502717 M79.1 Performed TPIs in bilateral traps, rhomboids and right CPS musclesPt tolerated injections wellCCMM Refractory migraine with aura 806246121 G43.119 Performed right G/L/TONB Pt tolerated injections well [facility] [id number] JEANETH PETERS MD NEUROLOGY [facility] [address] [place] [id number] 02/12/2017 14:38:22 02/12/2017 15:54:55 Migraine with aura 5701035 G43.109 Pt is having about 10-15 migraine days per month over the past 6 months, sometimes more. Migraine can last 6 hours to several days. Menstrual cycle seems to be a trigger but other times of month they are random. She seems to have a strong cervicogen ic/myofasc ial trigger. Also she grinds her teeth at night and this may be contributi ng. Poor sleep is likely also contributi ng and I've counseled her on the importance of a good nights sleep. She has tried doxepin PRN but this makes her too groggy the next morning and was taking it rarely and only for the insomnia. Will give a trial of amitriptyl ine. I've counseled her on the increased risk for stroke, [place], blood clots in patients with migraine with aura and recommende d she begin ASA 81 mg daily. I've also counseled her on my concern for analgesic rebound and recommende d that she avoid more than 10 analgesics per month. Always treat early and favor the Relpax over Tyelnol or NSAIDs for their SE and for concern of rebound. - Will repeat R lesser and third nerve blocks PRN- Decrease amitriptyl ine to 1/2 tab due to excessive daytime sleepiness - Recommend that she get a bite guard for night- Continue ASA 81 mg daily- Zofran at onset migraine aura or migraine, then Relpax- trial of Botox/Dysp ort 20 MALI to masseters for bruxism- defer on Botox migraine protocol at this time given number of headaches/ migraines and response to Relpax- RTC 4 months or sooner PRN and PRN nerve blocks I provided hand written instructio ns on all listed recommenda tions above. Menstrual migraine 68817 000 G43.839 Advised she keep a diary of migraines relative to her menstrual cycle and try to predict migraines. Then beginning 1 day prior to anticipate d menstrual migraine begin Aleve 1 tab q12h x 3 days Medication overuse 04143 72466 102 Z91.14 H/o overusing NSAIDs and acetaminop hen; concern for possible analgesic rebound headaches- avoid more than 10 analgesics per month Muscle pain 87495764 M79 .1 Trial of Neurontin 100 mg 1 to 3 tabs tidContinu e DoTerra Past TenseTrial muscle relaxant cream Neck pain 29482626 M54.2 as above CC: Tamar Mcghee. Bruxism 790140078 F45.8 Recommend that she come in for chemodentr avention of either Botox or Dysport, 20u to the masseters [id number] JEANETH PETERS MD [facility]OLOGY [facility] [address] [place] [address] 03/25/2017 15:40:00 03/25/2017 17:05:58 Refractory migraine with aura 841380716 G43.119 Performed right LONB and TONB Pt tolerated injections well CCMM Muscle pain 39448725 M79 .1 Performed TPIs in bilateral traps, right rhomboid and right CPS musclesPt tolerated [facility] [id number] JEANETH PETERS MD [facility] [address] [place] [address] 06/11/2017 15:15:25 06/14/2017 08:28:15 Migraine with aura 9471990 G43.119 Pt is having about 10-15 migraine days per month over the past 6 months, sometimes more. Migraine can last 6 hours to several days. Menstrual cycle seems to be a trigger but other times of month they are random. She seems to have a strong cervicogen ic/myofasc ial trigger. Also she grinds her teeth at night and this may be contributi ng. Poor sleep is likely also contributi ng and I've counseled her on the importance of a good nights sleep. She has tried doxepin PRN but this makes her too groggy the next morning and was taking it rarely and only for the insomnia. Will give a trial of amitriptyl ine of increasing to 50 mg qhs. She is to hold doxepin. I've counseled her on the increased risk for stroke, [place], blood clots in patients with migraine with aura and recommende d she begin ASA 81 mg daily. I've also counseled her on my concern for analgesic rebound and recommende d that she avoid more than 10 analgesics per month. Always treat early and favor the Relpax over Tyelnol or NSAIDs for their SE and for concern of rebound. - continue Neurontin 100 mg 1-2 tab hs PRN-MERVAT reviewed -LTCSA terms discussed and contract signed- Repeat R lesser and third nerve blocks today with TPI to traps and R rhomboid today and PRN.-Incre ase the amitriptyl ine and take 2x 25mg at bedtime.-S tart magnesium 400mg qhs.- Begin time released melatonin. - hold Silenor (doxepin) while doing trial of increased amitriptyl ine.-Recom mend that she take the Effexor in the morning.- Recommend that she begin using her bite guard for night and I injected 15 u Botox today for bruxism- Continue ASA 81 mg daily- Zofran at onset migraine aura or migraine, then Relpax- RTC 6 months or sooner PRN and PRN nerve blocks Bruxism [id number] F45.8 Botox 15 u (10 to R, 5 to L masseters performed todaybegin bite guard (just got one) Muscle pain 84230081 M79 .1 TPIs performed todayConti nue Neurontin 100 mg 1 to 3 tabs tidContinu e [place] peppermint oil blend for muscle tensionTri al muscle relaxant creamComme nded for getting a bluetooth headphone set. This should be helpful. Menstrual migraine 09775 000 G43.839 Advised she keep a diary of migraines relative to her menstrual cycle and try to predict migraines. Beginning 1 day prior to anticipate d menstrual migraine begin Aleve 1 tab q12h x 3 days Medication overuse 37003 40036 102 Z91.14 H/o overusing NSAIDs and acetaminop hen; concern for possible analgesic rebound headaches- avoid more than 10 analgesics per month CC: Tamar Mcghee M.D. Neck pain 03922049 M54.2 as above; work on ROM; avoid holding phone between neck and shoulders Paresthesia 06985596 R20 .2 new problem: intermitte nt numbness, tingling, electric sensation in her legs, sometimes into her feet/toes and drawing up/crampin g in her feet/toes, suggestive of peripheral neuropathy -Check FAZAL-Check SPEP-Sched ule EMG BLE- she is to bring in labs for CBC, CMP, TSH, FT4, B12 and vitamin D- she is to continue her current vitamin supplement s for now- I will see her in f/u after the EMG and review labs, recommenda tions Psychophys iologic insomnia 137471568 F51.04 - on Effexor- recommend that she get her 6 year old son into his own bed- counseled on sleep hygiene- increase amitriptyl ine 50 mg qhs (or switch back to doxepin)-- counseled on additive anticholin ergic and serotonerg ic effects of amitriptyl ine, doxepin, Effexor, cyclobenza precious and triptans- begin timed release melatonin 1-2 mg qhs [id number] JEANETH PETERS MD [facility]UROLOGY [facility] [address] [place] [address] 06/11/2017 16:13:43 06/14/2017 08:42:43 Bruxism 035737299 F45.8 15 units of Botox were applied to her masseters today. [id number] JEANETH PETERS MD NEUROLOGY [facility] [address] [place] [address] 07/14/2017 08:06:13 08/19/2017 18:56:19 [id number] JEANETH PETERS MD NEUROLOGY [facility] [address] [place] [address] 07/14/2017 08:28:35 07/14/2017 09:45:26 Skin sensation disturbance 98321571 R20.9 Cramp in lower limb 4499 76944 R25.2 Low back pain 930223341 M54.5 [id number] IVY GRIDER MD ENDOCRINO LOGY [address] [place] [address] 08/11/2017 12:46:53 08/11/2017 13:33:52 Hypothyroidism 02213106 E03.9 E06.3 Reported classic symptoms of hypothyroi dism in the context of normal thyroid hormone levels.Dora ology of her symptoms is not certain.I recommende d a trial of combined thyroid hormone replacemen t therapy.Sh e verbalized understand ing and agreed.Sta rt liothyroni ne 5 g every a.m. and 5 g every bedtime.Co ntinue levothyrox ine 150 g every am appropriat e as instructed .Recheck thyroid hormone levels before next visit after 2 months. Fatigue 83220702 R53.83 Fatigue of uncertain etiology.P roceed with a therapeuti c trial of combined thyroid hormone replacemen t therapy.I also would like to evaluate for adrenal insufficie ncy in view of her history of Vitaliy thyroiditi s and increased risk of autoimmune adrenal disease as well.1] Baseline ACTH and serum cortisol 2] 250 mcg cosyntropi n [ Synacthen] 3] 30 minutes, 60 minutes serum cortisol post cosyntropi n Anti-nucle ar factor detected 004769715 R76.8 A titer of 1:160Negat clint other autoimmune testing.Re ferral to rheumatolo gy for further evaluation . Thyroid nodule 783302763 E04.1 Reported long-stand ing history of adrenal nodules.6 years ago at she had Thyroid ultrasound showing bilateral small nodules.Re ferral to radiology department for detailed thyroid ultrasound .Further management to be determined as appropriat e. [id number] ELEAZ[address] MD RHEUMATOL OGY [address] [place] [address] 08/26/2017 08:38:42 08/26/2017 10:49:11 Anti-nuclear factor detected 473480790 R76.8 low positive test.at low titers at 1:160.foll ow up studies are all normal.c3/ c4 levels are normal. clinically , she has an excellent examinatio n.no features of an inflammato ry joint disease noted.no features of systemic autoimmune disease noted. Low positive FAZAL can be seen in autoimmune thyroid disease besides being false positive. however , to complete the investigat ion, I want to obtain the anti SSA/ SSB abs to exclude the sjogren's syndrome. If the study is negative, I do not suggest any further investigat ion. [id number] IVY GRIDER MD ENDOCRINO LOGY [address] [place] [address] 10/12/2017 10:10:56 10/12/2017 10:43:48 Hypothyroidism 21958017 E06.3 E04.2 Reported significan t clinical improvemen t i.e. more energyCont inue liothyroni ne 5 g every a.m. and 5 g every bedtime. [ Wonders if she can increase her liothyroni ne dose]Anca nue Synthroid 150 g every am appropriat e as instructed .Recheck thyroid hormone level. Prescripti ons to be renewed based onThyroid ultrasound on 08/26/17 showed 1.4 cm Isoechoic thyroid nodule without suspicious characteri stics.Cont inue to monitor thyroid nodularity by Repeat ultrasound after 1 year in August 2018 Vitaliy thyroiditis 21 053102 E06.3 See above [id number] JEANETH PETERS MD [facility]OLOGY [facility] [address] [place] [address] 08/04/2018 10:15:32 08/04/2018 12:11:14 Migraine with aura 1869502 G43.109 Pt is having about 10-15 migraine days per month over the past 6 months, sometimes more. Menstrual cycle seems to be a trigger but other times of month they are random. She seems to have a strong cervicogen ic/myofasc ial trigger. Also she grinds her teeth at night and this may be contributi ng. She is not sleeping well. Poor sleep is likely also contributi ng and I've counseled her on the importance of a good nights sleep. She has tried amitriptyl ine, doxepin PRN but this makes her too groggy the next morning and was taking it rarely and only for the insomnia. Will give a trial of Topamax and Ajovy. I've counseled her on the increased risk for stroke, [place], blood clots in patients with migraine with aura and recommende d she begin ASA 81 mg daily. I've also counseled her on my concern for analgesic rebound and recommende d that she avoid more than 10 analgesics per month. Always treat early and favor the Relpax over Tyelnol or NSAIDs for their SE and for concern of rebound. - will give a trial of Ajovy- PRN nerve blocks and TPIs (not covered by her new insurance) - Decrease amitriptyl ine to 1/2 tab due to excessive daytime sleepiness - Recommend that she get a bite guard for night- Continue ASA 81 mg daily- Zofran at onset migraine aura or migraine, then Relpax- trial of Botox/Dysp ort 20 MALI to masseters for bruxism- defer on Botox migraine protocol at this time given number of headaches/ migraines and response to Relpax- RTC 6 months or sooner PRN and PRN nerve blocks I provided hand written instructio ns on all listed recommenda tions above. Bruxism 701623997 F45.8 Recommend repeat Botox 15-20 units for bruxism +/- 15 units for lamp shade maker s/procerus cosmetic, may help with migraines. Recommend she use her bite guard. Muscle pain 91225831 M79 .12 Schedule TPIS with nerve blocksTria l of peppermint oil Menstrual migraine 43615 000 G43.839 Unable to predict her menstural period at this point If predictabl e beginning 1 day prior to anticipate d menstrual migraine begin Aleve 1 tab q12h x 3 days Medication overuse 03900 68228 102 Z91.14 H/o overusing NSAIDs and acetaminop hen; concern for possible analgesic rebound headaches- avoid more than 10 analgesics per month Neck pain 07218356 M54.2 as above Fatigue 51330010 R53.83 Stays tired, not sleep well - recommend she begin MVI (w/iron while still menstruati ng), vit D3 2000 iu, B12 500-1000 mcg daily - change melatonin to melatonin time release 1-3 mg for insomnia Insomnia 971694406 G47.0 0 - too sedated with amitriptyl ine or doxepin, Neurontin - trial of time release melatonin 1-3 mg qhs - may benefit from tx of anxiety for racing thoughts; - continue Pristiq, works better than Effexor for her anxiety Restless legs 61547882 G 25.81 new symptoms suggestive of restless leg - will give a trial of Requip 40 min appt with > 50% in counseling to pt and regarding importance of sleep, tx of anxiety, tension, stretches, avoiding excessive analgesics , new medication Ajovy and potential SE of Topamax CC: Tamar Mcghee. [id number] JEANETH PETERS MD NE[facility]OLOGY [facility] [address] [place] [address] 08/12/2018 08:33:53 08/12/2018 09:57:21 Migraine with aura 6783627 G43.119 Pt is having about 10-15 migraine days per month over the past 6 months, sometimes more. Menstrual cycle seems to be a trigger but other times of month they are random. She seems to have a strong cervicogen ic/myofasc ial trigger. Also she grinds her teeth at night and this may be contributi ng. She is not sleeping well. Poor sleep is likely also contributi ng and I've counseled her on the importance of a good nights sleep. She has tried amitriptyl ine, doxepin PRN but this makes her too groggy the next morning and was taking it rarely and only for the insomnia. - Right lesser and third occipital nerve blocks and TPIs performed today PER PREVIOUS PLAN: Will give a trial of Topamax and Ajovy. I've counseled her on the increased risk for stroke, [place], blood clots in patients with migraine with aura and recommende d she begin ASA 81 mg daily. I've also counseled her on my concern for analgesic rebound and recommende d that she avoid more than 10 analgesics per month. Always treat early and favor the Relpax over Tyelnol or NSAIDs for their SE and for concern of rebound. - will give a trial of Ajovy- PRN nerve blocks and TPIs (not covered by her new insurance) - Decrease amitriptyl ine to 1/2 tab due to excessive daytime sleepiness - Recommend that she get a bite guard for night- Continue ASA 81 mg daily- Zofran at onset migraine aura or migraine, then Relpax- trial of Botox/Dysp ort 20 MALI to masseters for bruxism- defer on Botox migraine protocol at this time given number of headaches/ migraines and response to Relpax- RTC 6 months or sooner PRN and PRN nerve blocks I provided hand written instructio ns on all listed recommenda tions above. Muscle pain 82013474 M79 .12 Trigger point injections to bilateral trapezius, right cervical paraspinal , levator scapulae and right rhomboid muscles performed today in conjunctio n with the nerve blocksTria l of peppermint oil [id number] IVY GRIDER MD ENDOCRINO LOGY [address] [place] [address] 10/13/2018 13:50:41 10/13/2018 15:11:47 Vitaliy thyroiditis 65742394 E06.3 Explained to patient that while its uncommon for Vitaliy thyroiditi s to be painful occasional ly she might feel intermitte nt neck pain and discomfort . Hypothyroidism 63689471 E06.3 E04.2 Clinically she did not report any symptoms of exogenous hypothyroi dismLabora tory workup on 10/12/2017 showed low TSH of 0.08 in the context of Arnold free T4/free T3 of [ 1.62/4.29] Continue liothyroni ne 5 g every a.m. and 5 g every bedtime.De crease Synthroid 137 g every am appropriat e as instructed .Recheck thyroid function test after 6 weeksPresc ription renewed Non-toxic multinodular goiter 33724681 E04.2 Thyroid ultrasound on 08/26/17 showed 1.4 cm Isoechoic thyroid nodule without suspicious characteri stics.Thyr oid ultrasound report and images on 10/10/2018 reviewed and discussed with patient which showedBila teral solid nodules. In the right there is a 12 x 10 x 11 mmnodule. On the left there is a 7 x 6 x 5 mm nodule. The right noduleisun changed. Left nodules grossly stable on review of the prior studyConelton martíneze to monitor thyroid nodularity by Repeat ultrasound after 1 year in August 2018 Acquired hypothyroidism 068226272 E03.9 [id number] JEANETH PETERS MD NEUROLOGY [facility] [address] [place] [address] 07/27/2019 08:33:13 07/27/2019 10:11:14 Migraine with aura 7012492 G43.109 Pt is having about 5-10 migraine days per month over the past 6 months, sometimes more. Menstrual cycle seems to be a trigger but other times of month they are unpredicta ble. She seems to have a strong cervicogen ic/myofasc ial trigger. Also she grinds her teeth at night and this may be contributi ng. She is not sleeping well. Poor sleep is likely also contributi ng and I've counseled her on the importance of a good nights sleep. She has tried amitriptyl ine, doxepin PRN but this makes her too groggy the next morning and was taking it rarely and only for the insomnia. I again counseled her on the increased risk for stroke, [place], blood clots in patients with migraine with aura and recommende d she begin ASA 81 mg daily. I've also counseled her on my concern for analgesic rebound and recommende d that she avoid more than 10 analgesics per month. Always treat early and favor the Relpax over Tylenol or NSAIDs for their SE and for concern of rebound. - Continue Topamax and Ajovy.- will give a trial to progestero ne topical to see if we can regulate her menstrual cycle- PRN nerve blocks and TPIs (not covered by her new insurance) - recommend she wear bite guard every night and give a another trial of Botox to the masseters- now off amitriptyl ine (stay off)- Continue ASA 81 mg daily- Zofran at onset migraine aura or migraine, then Relpax- would repeat Botox 20 to masseters for bruxism- RTC 6 months or sooner PRN and PRN nerve blocks Bruxism [id number] F45.8 Recommend repeat Botox 15-20 units for bruxism +/- 15 units for lamp shade maker s/procerus cosmetic, may help with migraines. Recommend she use her bite guard every night. Muscle pain [id number] M79 .12 Schedule TPIS with nerve blocks- peppermint oil Menstrual migraine 39624 [id number] G43.839 Unable to predict her menstrual period at this point - trial of progestero ne topical If predictabl e beginning 1 day prior to anticipate d menstrual migraine begin Aleve 1 tab q12h x 3 days Medication overuse [id number] Z91.14 H/o overusing NSAIDs and acetaminop hen; concern for possible analgesic rebound headaches- avoid more than 10 analgesics per month Neck pain [id number] M54.2 as above Fatigue [id number] R53.83 Stays tired, now sleeping too much; consider possible SE of Pristiq; - consider trial of Lexapro and d/c Pristiq - recommend she set time daily for her vitamins include MVI (w/iron while still menstruati ng), vit D3 2000 iu, B12 500-1000 mcg daily, CoQ10 200 mg and magnesium [id number] IVY GRIDER MD [facility] [address] [place] [address] 11/15/2019 13:58:52 11/15/2019 15:55:52 Hypothyroidism [id number] E06.3 E04.2 Labs from outside facility in July 2019 showed the followingL ow TSH of 0.04 [0.27 4.2] and elevated free T4 of 1.78 [0.8 6 1 0.76], otherwise she has normal prolactin [14.3], progestero ne, LH, FSH, estradiol and DHEAS Still complainin g of fatigue and tiredness Recheck TSH, free T4 and free T3 Continue levothyrox ine 137 g and liothyroni ne 5 g every a.m. and 5 g every bedtimeFur ther adjustment as appropriat e Non-toxic multinodular goiter [id number] E04.2 Thyroid ultrasound on 10/24/2019 showed a stable bilateral thyroid nodules and appearance consistent with Vitaliy thyroiditi s [ bilateral thyroid nodules are seen. The dominant nodule on the rightmeasu res13 x 9 x 11 mm. Dominant nodule on the left measures 7 x 6 x6mm.] Vitaliy thyroiditis 21 876351 E06.3 See above [id number] IVY GRIDER MD [facility] [address] [place] [address] 11/08/2020 12:34:56 11/08/2020 13:27:48 Hypothyroidism [id number] E06.3 E04.2 Reported intermitte nt palpitatio nsLow TSH on 11/15/2019 of 0.068 with normal free T4 and free T3 Recheck TSH, free T4 and free T3 Continue levothyrox ine 125 g and liothyroni ne 5 g every a.m. and 5 g every bedtimeFur ther adjustment as appropriat e [ Consider to decrease liothyroni ne to once a day]. Dysuria [id number] R30.9 Reported burning urination No fever or chills Denied any allergies to sulfa or penicillin . Urinalysis and further management to be determined as appropriat e Non-toxic multinodular goiter [id number] E04.2 Thyroid ultrasound on 10/24/2019 showed a stable bilateral thyroid nodules and appearance consistent with Vitaliy thyroiditi s [ bilateral thyroid nodules are seen. The dominant nodule on the rightmeasu res13 x 9 x 11 mm. Dominant nodule on the left measures 7 x 6 x6mm.]No change on size On physical exam today Multinodular goiter [id number] E04.2 Thyroid ultrasound on 10/24/2019 showed a stable bilateral thyroid nodules and appearance consistent with Vitaliy thyroiditi s [ bilateral thyroid nodules are seen. The dominant nodule on the rightmeasu res13 x 9 x 11 mm. Dominant nodule on the left measures 7 x 6 x6mm.]No change on size On physical exam today Health Concerns Section Related Observation LastModified by Organization Detai ls LastModified Time None Recorded Concern Status LastModified by Organization Details LastModified Time None Recorded Advance Directives Directive None Recorded Payers Insurance Date Sequence Insurance Name Policy Number Policy Salvador Covered Member ID Salvador Member ID Guarantor Name 09/06/2024 1 [employer] [id number] aMry Powell [id number] Mary Powell 09/06/2024 1 [place] [id number] Mary Powell [id number] Mary Powell 09/06/2024 1 [employer] [id number] Mary Powell [id number] Mary Powell 09/06/2024 1 [employer] (PPO) [id number] Mary Powell [id number] Mary Powell 07/27/2019 1 *SELF PAY* brian Powell Notes Date Note Type Note Provider Name and Address Organization Details Recorded Time 9 text/html 43-year-old female patient with a past medical history as detailed in the problem is significant for chronic migraine headaches on therapy, Vitaliy thyroiditis, primary hypothyroidism on thyroid hormone replacement therapy and Thyroid nodularity who is seen in the office today for 12 month follow-up visit hypothyroidism/thyroid nodularity. She was initially seen in the office at the request of Dr. Hernandez from neurology for Abnormal symptoms and hormonal evaluation. Reported 14 year history of hypothyroidism .Interval history:She currently takes Synthroid 150 g every a.m. appropriately as instructed.Liothyronine 5 g every a.m. and 5 g every bedtime Thyroid ultrasound in August 2017 showed Thyroid ultrasound on 08/26/17 showed 1.4 cm Isoechoic thyroid nodule without suspicious characteristics. Thyroid ultrasound on 10/10/2018 follow-up thyroid nodules.Denies any palpitations, shaking or excessive sweating.Denies any weight gain, weight loss, cold or heat intoleranceOccasional intermittent neck pain/discomfort IVY GRIDER MD [address] [place] [address], [phone], [facility] 10/13/2018 15:04:48 9 text/html f/u migraine She has been having some really severe migraine feels like her head will blow off, behind the right eye with pressure and severe sharp and throbbing pain on the right islam. She has nausea, light and sound sensitivity with these. They all seem now to be menstrual related and her cycle is irregular. It's usually a light flow for 2-3 days, but spotting in between and often migraines around mid cycle as well. This week she has had 5 days of migraine. Most months she has 5-8 days of migraine. She is not on OCP or HRT. She has never tried progesterone. Jessica seems to be keeping the non-menstrual migraine at bay or at least less. She takes Zofran and Relpax, but she doesn't get very many and she does't like to take them when she is working because they mess her up a little. She tried peppermint oil in past on the islam and on her traps. Traps are really tight and she gets massage and rapid tension relief (RTR) tx at [facility]. She is still going to bed at 8 pm because she falls asleep at 6:30 on the couch. Her mother, age 75, works circles around her. She is taking vitamins at night but often misses them. She takes Synthroid qam and not supposed to take vitamins with it. She often misses them because she falls asleep. 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 She is on spironolactone which cuts down on swelling and she takes PRN furosemide. She tries to drink 80 ounces of water daily. She still grinds teeth, often forgets to wear her biteguard. She has an 8 year-old son and he is wild. She has a 6 year-old grandson who is often there as well, and sometimes the 2 year-old grandson as well. She stays busy and exhausted. she has been told her vit B and D are fine. JEANETH PETERS MD [facility] [place], [phone], [facility] 07/27/2019 10:09:01 0 text/html 44-year-old female patient with a past medical history as detailed in the problem is significant for chronic migraine headaches on therapy, Vitaliy thyroiditis, primary hypothyroidism on thyroid hormone replacement therapy and Thyroid nodularity who is seen in the office today for 12 month follow-up visit hypothyroidism/thyroid nodularity. Summary of history:Reported 15 year history of hypothyroidism .Interval history:She currently takes Synthroid 137 g every a.m. appropriately as instructed.Liothyronine 5 g every a.m. and 5 g every bedtimeThyroid ultrasound in August 2017 showed Thyroid ultrasound on 08/26/17 showed 1.4 cm Isoechoic thyroid nodule without suspicious characteristics.Thyroid ultrasound on 10/10/2018 follow-up showed a stable nodule thyroid nodules.Complaining of fatigue Denies any palpitations, shaking or excessive sweating.Denies any weight gain, weight loss, cold or heat intoleranceOccasional intermittent neck pain/discomfort IVY GRIDER MD [address] [place] [address], [phone], [facility] 11/15/2019 14:27:56 1 text/html 45-year-old female patient with a past medical history as detailed in the problem is significant for chronic migraine headaches on therapy, Vitaliy thyroiditis, primary hypothyroidism on thyroid hormone replacement therapy and Thyroid nodularity who is seen in the office today for 12 months follow-up visit hypothyroidism/thyroid nodularity/Abnormal symptoms [dysuria) Summary of history:Reported 15 year history of hypothyroidism .Thyroid ultrasound in August 2017 showed Thyroid ultrasound on 08/26/17 showed 1.4 cm Isoechoic thyroid nodule without suspicious characteristics.Thyroid ultrasound on 10/10/2018 follow-up showed a stable nodule thyroid nodules.Currently takes Synthroid 125 g every a.m.Complaining of Intermittent palpitations. Recent onset burning urination Denies any heat intolerance, weight loss, shaking or excessive sweating.Denies any weight gain, cold or Fatigue. IVY GRIDER MD [address] [place] [address], [phone], [facility] 11/08/2020 13:22:59 OBGyn Episode No OBEpisode recorded.
[2025-03-30 18:36] LABS: Free T4 (Free Thyroxine) 1.22 ng/dl (0.78-2.19)
[2025-03-30 18:50] LABS: Thyroid Stimulating Hormone 0.43 uIU/mL (0.465-4.68)
== END 2025-03-30 23:59 | disposition home or self-care (01) ==
LOC: LAB 17:30
PROVIDERS: PCP Family Medicine; Visit Provider Family Medicine
DX: E03.9 Hypothyroidism, unspecified (principal)
CPT/HCPCS: 36415; 84439; 84443